=== PATIENT | female | born 2000 | race Caucasian/White ===

== ENCOUNTER 2025-05-08 14:39 | Emergency (ER) | payer OTHER, SELFPAY ==
--- OUTSIDE RECORDS SUMMARY | 2002-03-21 | XMS_ITS | Encounter Summary ---
Author Organization [facility] Address [address] [place] [address] Care Team Providers Care Necktie Centralizing Machine Operator Name Role Phone Unavailable Primary Care Provider Unavailabl e Encounter Details Date Type Department Care Team (Late st Contact Info) Description 03/21/2002 Hospital Encounter [facility] Department of Radiology [address] [place] [phone] Social History Tobacco Use Types Packs/Day Years Used Date Smoking Tobacco: Never Smokeless Tobacco: Never Alcohol Use Standard Drinks/Week Comments No 0 (1 standard drink = 0.6 oz pur e alcohol) Intimate Partner Violence Answer Date R ecorded If you are in a relationship , do you feel safe in that relationship? Yes 04/21/2025 If you are in a relationship , do you feel safe in that relationship? Not currently in a relationship 04/21/2025 Financial Resource Strain Answer Date R ecorded Financial benefits problems Not on file 05/2022 Trouble paying for things you need Not on file 09/12/2022 Trouble paying for things you need (Other) Not o n file 09/12/2022 Depression Answer Date Recorded PHQ-2 Score 6 07/31/2024 Safety and Environment Answer Date Rogelio rded Do you have any concerns of physical abuse, sexual abuse, or neglect of your child? No 11/12/2024 Is an adult hurting you or your family? No 11/12/2024 Has someone ever touched you in a sexual way that was not ok with you? No 11/12/2024 Is someone hurting your or your family? No 11/12/2024 Historical abuse worry Not on file If you have firearms in the home, are they all in locked storage AND unloaded? Not on file 11/12/2024 Comments No Sex and Gender Information Value Date Recorded Sex Assigned at Female 11/24/2020 8:15 AM EDT Legal Sex Female 5:13 AM EST Gender Identity Transgender Male 11/24/2020 8:15 AM EDT Sexual Orientation Not on file documented as of this encounter Plan of Treatment Upcoming Encounters Date Type Department Care Team (Late st Contact Info) Description 06/23/2025 10:45 AM EST Appointment [facility] Division of Psychiatry [address] [place] [phone] Frederic Lam MD Psychiatry/Psycho [facility] - [address] [place] [address] [place] [address] Discharge Disposition: Home or Self Care documented as of this encounter Goals Goal Patient Goal Type Associated Problems Recent Progress Patient-Stated? Author How and when to contact the care team Access Planning No Maritza Thomas RN Note: Patient and Family will verbalize understanding of who to call for medical questions and concerns. Status: progressing Interventions: Reinforced to call triage or oncology oncall for illness. Reinforced to call medicare compliance auditor for non emergent issues. Encouraged family to ask questions re: care. General Care Management Care Management No Maritza Thomas RN Note: Patient and Family will verbalize understanding of diagnosis, treatment plan, medications, safety measures and appointment adherence. Status: Progressing Interventions: Reinforcement of treatment plan, medications, calendar of appointments given to family. Collaborate with patient and family to develop a patient-stated goal General Yes Maritza Thomas, RN Note: Status: Progressing Interventions: Meet with the family to formalize a goal for DJ. documented as of this encounter Visit Diagnoses Not on filedocumented in this encounter Additional Health Concerns Infection Onset Date Last Indicated Resolved Time Enteric 10/05/2015 10/05/2015 11/05/2015 4:49 PM EDT C-Diff 10/05/2015 10/05/2015 11/05/2015 4:49 PM EDT documented as of this encounter
--- OUTSIDE RECORDS SUMMARY | 2002-04-09 | XMS_ITS | Encounter Summary ---
Author Organization [facility] Address [address] [place] [address] Care Team Providers Care Wire Mill Rover Name Role Phone Unavailable Primary Care Provider Unavailabl e Encounter Details Date Type Department Care Team (Late st Contact Info) Description 04/09/2002 Hospital Encounter [facility] Division of Diabetes and Endocrinology [address] [place] [phone] Social History Tobacco Use Types Packs/Day [...] Info) Description 06/23/2025 10:45 AM EST Appointment [facility] Division of Psychiatry [address] [place] [phone] Frederic Lam MD Psychiatry/Psycho [address] [place] [address] [place] [address] Discharge Disposition: Home or Self Care documented [...] oncology oncall for illness. Reinforced to call healthcare recruiter for non emergent issues. Encouraged family to [...]
--- OUTSIDE RECORDS SUMMARY | 2003-01-28 23:00 | XMS_ITS | Encounter Summary ---
Author Organization [facility] Address [address] [place] [address] Care Team Providers Care Accounting Supervisor Name Role Phone Unavailable Primary Care Provider Unavailabl e Encounter Details Date Type Department Care Team (Late st Contact Info) Description 01/29/2003 Hospital Encounter [facility] Division of Endocrinology [address] [place] [address] Social History Tobacco Use Types Packs/Day Years [...] on file documented as of this encounter Progress Notes * Edt, Audit [place] - 07/14/2010 4:11 PM EST documented in this encounter Plan of Treatment Upcoming Encounters Date Type Department Care Team (Late st Contact Info) Description 06/23/2025 10:45 AM EST Appointment [facility] Division of Psychiatry [address] [place] [phone] Frederic Lam MD Psychiatry/Psycho [address], [address] [place] [phone] Discharge Disposition: Home or Self Care documented [...] oncology oncall for illness. Reinforced to call career information specialist for non emergent issues. Encouraged family to ask questions re: care. General Care Management Care Management No Maritza Thomas, IRMA Note: Patient and Family will verbalize understanding [...]
--- OUTSIDE RECORDS SUMMARY | 2003-05-21 | XMS_ITS | Encounter Summary ---
Author Organization [facility] Address [address] [place] [address] Care Team Providers Care Servicenow Administrator Name Role Phone Unavailable Primary Care Provider Unavailabl e Encounter Details Date Type Department Care Team (Late st Contact Info) Description 05/21/2003 Hospital Encounter [facility] Division of Endocrinology [address] [place] [address] Social History Tobacco Use Types [...] Info) Description 06/23/2025 10:45 AM EST Appointment [facility] Division of Psychiatry [address] [place] [phone] Frederic Lam MD Psychiatry/Psycho [facility] - [address] [place] [address] [place] [address] Discharge Disposition: Home or Self Care documented [...] oncology oncall for illness. Reinforced to call pediatric critical care nurse for non emergent issues. Encouraged family to [...]
--- OUTSIDE RECORDS SUMMARY | 2003-11-25 23:00 | XMS_ITS | Encounter Summary ---
Author Organization [facility] Address [address] [place] [address] Care Team Providers Care Hospital Chaplain Name Role Phone Unavailable Primary Care Provider Unavailabl e Encounter Details Date Type Department Care Team (Late st Contact Info) Description 11/26/[address] [facility] Division of Endocrinology [address] [place] [address] Social History Tobacco Use Types [...] Info) Description 06/23/2025 10:45 AM EST Appointment [facility] Division of Psychiatry [address] [place] [phone] Frederic Lam MD Psychiatry/Psycho [facility] - [address] [place] [address] [place] [address] Discharge Disposition: Home or Self Care documented [...] oncology oncall for illness. Reinforced to call adult caregiver for non emergent issues. Encouraged family to [...]
--- OUTSIDE RECORDS SUMMARY | 2004-06-02 | XMS_ITS | Encounter Summary ---
Author Organization [facility] Address [address] [place] [address] Care Team Providers Care Cracking And Fanning Machine Operator Name Role Phone Unavailable Primary Care Provider Unavailabl e Encounter Details Date Type Department Care Team (Late st Contact Info) Description 06/02/[address] [facility] Division of Endocrinology [address] [place] [address] Social History Tobacco Use Types [...] Info) Description 06/23/2025 10:45 AM EST Appointment [facility] Division of Psychiatry [address] [place] [phone] Frederic Lam MD Psychiatry/Psycho [facility] - [address] [place] [address] [place] [address] Discharge Disposition: Home or Self Care documented [...] oncology oncall for illness. Reinforced to call floor care specialist for non emergent issues. Encouraged family [...]
--- OUTSIDE RECORDS SUMMARY | 2004-11-30 23:00 | XMS_ITS | Encounter Summary ---
Author Organization [facility] Address [address] [place] [address] Care Team Providers Care Macerator Operator Name Role Phone Unavailable Primary Care Provider Unavailabl e Encounter Details Date Type Department Care Team (Late st Contact Info) Description 12/01/2004 Hospital Encounter [facility] Division of Endocrinology [address] [place] [address] Social History Tobacco Use Types [...] Info) Description 06/23/2025 10:45 AM EST Appointment [facility] Division of Psychiatry [address] [place] [phone] Frederic Lam MD Psychiatry/Psycho [facility] - [address] [place] [address] [place] [address] Discharge Disposition: Home or Self Care documented [...] oncology oncall for illness. Reinforced to call home care associate for non emergent issues. Encouraged family to [...]
--- OUTSIDE RECORDS SUMMARY | 2005-06-01 | XMS_ITS | Encounter Summary ---
Author Organization [facility] Address [address] [place] [address] Care Team Providers Care District Manager Postal Service Name Role Phone Unavailable Primary Care Provider Unavailabl e Encounter Details Date Type Department Care Team (Late st Contact Info) Description 06/01/2005 Hospital Encounter [facility] Division of Endocrinology [address] [place] [address] Social History Tobacco Use Types [...] Info) Description 06/23/2025 10:45 AM EST Appointment [facility] Division of Psychiatry [address] [place] [phone] Frederic Lam MD Psychiatry/Psycho [facility] - [address] [place] [address] [place] [address] Discharge Disposition: Home or Self Care documented [...] oncology oncall for illness. Reinforced to call foster care worker for non emergent issues. Encouraged family to [...]
--- OUTSIDE RECORDS SUMMARY | 2005-11-29 23:00 | XMS_ITS | Encounter Summary ---
Author Organization [facility] Address [address] [place] [address] Care Team Providers Care Consumer Attorney Name Role Phone Unavailable Primary Care Provider Unavailabl e Encounter Details Date Type Department Care Team (Late st Contact Info) Description 11/30/2005 Hospital Encounter [facility] Division of Endocrinology [address] [place] [address] Social History Tobacco Use Types [...] Info) Description 06/23/2025 10:45 AM EST Appointment [facility] Division of Psychiatry [address] [place] [phone] Frederic Lam MD Psychiatry/Psycho [facility] - [address] [place] [address] [place] [address] Discharge Disposition: Home or Self Care documented [...] oncology oncall for illness. Reinforced to call critical care physician assistant for non emergent issues. Encouraged family to [...]
--- OUTSIDE RECORDS SUMMARY | 2006-05-31 | XMS_ITS | Encounter Summary ---
Author Organization [facility] Address [address] [place] [address] Care Team Providers Care Estate Planning Paralegal Name Role Phone Unavailable Primary Care Provider Unavailabl e Encounter Details Date Type Department Care Team (Late st Contact Info) Description 05/31/2006 Hospital Encounter [facility] Division of Endocrinology [address] [place] [address] Social History Tobacco Use Types [...] Info) Description 06/23/2025 10:45 AM EST Appointment [facility] Division of Psychiatry [address] [place] [phone] Frederic Lam MD Psychiatry/Psycho [facility] - [address] [place] [address] [place] [address] Discharge Disposition: Home or Self Care documented [...] oncology oncall for illness. Reinforced to call palliative care specialist for non emergent issues. Encouraged [...]
--- OUTSIDE RECORDS SUMMARY | 2006-10-13 23:00 | XMS_ITS | Encounter Summary ---
Author Organization [facility] Address [address] [place] [address] Care Team Providers Care Referral Specialist Name Role Phone Unavailable Primary Care Provider Unavailabl e Encounter Details Date Type Department Care Team (Late st Contact Info) Description 10/14/2006 Hospital Encounter [facility] Division of Orthopaedics [address] [place] [phone] Social History Tobacco Use Types Packs/Day [...] 06/23/2025 10:45 AM EST Appointment [facility] Division of Psychiatry [address] [place] [phone] Frederic Lam MD Psychiatry/Psycho [facility] - [address] [place] [address] [place] [address] Discharge Disposition: Home or Self Care documented as of this encounter Goals Goal Patient Goal Type Associated Problems Recent Progress Patient-Stated? Author How and when to contact the care team Access Planning Maritza Baker RN Note: Patient and Family will verbalize understanding of who to call for medical questions and concerns. Status: progressing Interventions: Reinforced to call triage or oncology oncall for illness. Reinforced to call pet caregiver for non emergent issues. Encouraged family [...] a patient-stated goal General Yes Maritza Thomas, IRMA Note: Status: Progressing Interventions: Meet with the family to formalize a goal for DJ. documented as of this encounter Visit Diagnoses Not on filedocumented in this encounter Additional Health Concerns Infection Onset Date Last Indicated Resolved Time Enteric 10/05/2015 10/05/2015 11/05/2015 4:49 PM EDT C-Diff 10/05/2015 10/05/2015 11/05/2015 4:49 PM EDT documented as of this encounter
--- OUTSIDE RECORDS SUMMARY | 2006-11-06 23:00 | XMS_ITS | Encounter Summary ---
Author Organization [facility] Address [address] [place] [address] Care Team Providers Care Tractor Operator Laser Leveling Name Role Phone Unavailable Primary Care Provider Unavailabl e Encounter Details Date Type Department Care Team (Late st Contact Info) Description 11/07/2006 Hospital Encounter [facility] Division of Orthopaedics [address] [place] [phone] Social History Tobacco Use Types Packs/Day Years [...] Info) Description 06/23/2025 10:45 AM EST Appointment [facility] Division of Psychiatry [address] [place] [phone] Frederic Lam MD Psychiatry/Psycho [facility] - [address] [place] [address] [place] [address] Discharge Disposition: Home or Self Care documented [...] oncology oncall for illness. Reinforced to call careers adviser for non emergent issues. Encouraged family to [...] for DJ. documented as of this encounter Procedures Procedure Name Priority Date/Time Associated Diagnosis Comments RAD SHOULDER 2V+ Routine 11/07/2006 9:47 AM EDT documented in this encounter Results * RAD SHOULDER (2 VIEW+) (11/07/2006 9:47 AM EDT) Anatomical Region Laterality Modality RAD UPPER EXTREMITIES Computed R adiography 11/07/2006 9:33 AM EDT Narrative 11/07/2006 9:47 AM EDT Final Report Clinical history followup fracture healing. Impression considerable callus at healing fracture of proximal humerus Interpreted By: CINDY BANUELOS M.D. Verified By: CINDY BANUELOS M.D. on 11/07/2006 09:58 via Electronic Signature The attending radiologist has reviewed the images and agrees with this report. us [place] Do, MD DIAGNOSTIC IMAGING ORDERABLES Fi nal Result documented in this encounter Visit Diagnoses Not on filedocumented in this encounter Additional Health Concerns Infection Onset Date Last Indicated Resolved Time Enteric 10/05/2015 10/05/2015 11/05/2015 4:49 PM EDT C-Diff 10/05/2015 10/05/2015 11/05/2015 4:49 PM EDT documented as of this encounter
--- OUTSIDE RECORDS SUMMARY | 2025-04-21 10:15 | XMS_ITS | Encounter Summary ---
Author Organization [facility] Address [address] [place] [address] Care Team Providers Care Civilian Technician Name Role Phone Napoleon Courtney MD Primary Care Provider [phone] Encounter Details Date Type Department Care Team (Latest Contact Info) Description 04/21/2025 10:15 AM EST Specimen Collection [facility] Test Referral Center [address] [place] [address] [phone] Clinical Labs, [facility] Anxiety disorder, unspecified type; Hypopituitarism involving multiple pituitary deficiencies Discharge Disposition: Home or Self Care Social History Tobacco Use Types Packs/Day Years [...] Info) Description 06/23/2025 10:45 AM EST Appointment [facility] Division of Psychiatry [address] [place] [phone] Frederic Lam MD Psychiatry/Psycho [address] [place] [address] [place] [address] Discharge Disposition: Home or Self Care documented [...] oncology oncall for illness. Reinforced to call childcare worker for non emergent issues. Encouraged family [...] Procedure Name Priority Date/Time Associated Diagnosis Comments ANTI-MULLERIAN HORMONE Routine 04/21/2025 10:20 AM EST Hypopituitarism involving multiple pituitary deficiencies TSH WITH REFLEX TO T4 FREE, RAPID Routine 04/21/2025 10:20 AM EST Anxiety disorder, unspecified type T4 FREE, RAPID Routine 04/21/2025 10:20 AM EST Anxiety disorder, unspecified type HEPATIC PROFILE (NO GGT) Routine 04/21/2025 10:20 AM EST Anxiety disorder, unspecified type LIPID PROFILE W/ HDL Routine 04/21/2025 10:20 AM EST Anxiety disorder, unspecified type LH Routine 04/21/2025 10:20 AM EST Hypopituitarism involving multiple pituitary deficiencies GLYCOSYLATED HGB (HGB A1C) Routine 04/21/2025 10:20 AM EST Anxiety disorder, unspecified type FSH Routine 04/21/2025 10:20 AM EST Hypopituitarism involving multiple pituitary deficiencies ESTRADIOL US Routine 04/21/2025 10:20 AM EST Hypopituitarism involving multiple pituitary deficiencies documented in this encounter Results * T4 Free, Rapid (04/21/2025 10:20 AM EST) Thyroxine Free 1.50 0.90 - 2.30 ng/dL 04/21/2025 11:18 AM EST [facility] Blood Venipuncture / Unknown 04/21/2025 10:20 AM EST 04/21/2025 10:21 AM EST us Frederic Lam MD CHEMISTRY ORDERABLES Fin al Result Performing Organization Address City/State/[facility] Co de Phone Number [facility] [address] [facility] Room [address] [place] [address] * Anti-Mullerian Hormone (04/21/2025 10:20 AM EST) ANTI-MULLERIAN HORMONE 5.982 0.401 - 16.015 ng/mL 04/24/2025 11:07 AM EST [facility] Comment: INTERPRETIVE INFORMATION: Anti-Mullerian Hormone FEMALE: 6 months - 14 years: 0.256 - 6.345 ng/mL 15-17 years: 0.861 - 10.451 ng/mL 18-29 years: 0.401 - 16.015 ng/mL 30-39 years: 0.176 - 11.705 ng/mL 40-45 years: 6.282 ng/mL or less 46-50 years: 0.064 ng/mL or less Post-menopausal: 0.003 ng/mL or less MALE: 6-11 months: 56.677 - 495.299 ng/mL 1-6 years: 33.442 - 342.450 ng/mL 7-9 years: 20.245 - 189.781 ng/mL 10-12 years: 2.903 - 178.243 ng/mL 13 years and older: 2.079 - 30.656 ng/mL This test was developed and its performance characteristics determined by [employer]. It has not been cleared or approved by the US Food and Drug Administration. This test was performed in a CLIA certified laboratory and is intended for clinical purposes. Performed By: [employer] [address] [place] [address] Clear Coat Sprayer: Georgi Hannah MD, PhD CLIA Number: [id number] Blood Venipuncture / Unknown 04/21/2025 10:20 AM EST 04/21/2025 10:21 AM EST us Georgi Blum MD CHEMISTRY ORDERABLE S Final Result Performing Organization Address City/State/[facility] Co de Phone Number [address] [address] * Estradiol Us (04/21/2025 10:20 AM EST) ESTRADIOL BY TMS 15.8 pg/mL 04/25/20 4:45 AM EST [facility] Comment: REFERENCE INTERVAL: Estradiol by [employer] Pre-menopausal: Early follicular 30.0-100.0 pg/mL Pre-menopausal: Late follicular 100.0-400.0 pg/mL Pre-menopausal: Luteal 50.0-150.0 pg/mL Post-menopausal 2.0-21.0 pg/mL REFERENCE INTERVAL: Estradiol by [employer] For a complete set of all established reference intervals, refer to [employer]/Tests/Pub/[id number]. This test was developed and its performance characteristics determined by [employer]. It has not been cleared or approved by the US Food and Drug Administration. This test was performed in a CLIA certified laboratory and is intended for clinical purposes. Performed By: [employer] [address] [place], [place] [id number] Clear Coat Sprayer: Georgi Hannah MD, PhD CLIA Number: [id number] Blood Venipuncture / Unknown 04/21/2025 10:20 AM EST 04/21/2025 10:21 AM EST us Georgi Blum MD CHEMISTRY ORDERABLE S Final Result Performing Organization Address [facility] de Phone Number [address] [address] * FSH (04/21/2025 10:20 AM EST) FOLLICLE STIMULATING HORMONE 6.9 mIU/mL 04/22/2025 12:36 PM EST [facility] Comment: Reference Ranges: Infants Male Female 4 weeks - 1 year < 2.5 - 7.6 < 2.5 - 26.3 Prepubertal children Male Female 2 - 8 years < 2.5 - 5.6 < 2.5 - 7.8 Pubertal children Male Female Elroy stage 1 < 2.5 - 5.6 < 2.5 - 7.8 Elroy stage 2 3.3 - 5.9 < 2.5 - 20.0 Elroy stage 3 2.5 - 10.7 2.8 - 23.7 Elroy stage 4 3.7 - 17.0 2.8 - 21.7 Elroy stage 5 4.8 - 20.4 < 2.5 - 17.0 Adults Male (20 - 50 years) 3.7 - 17.0 Female (20 - 50 years) follicular and luteal 3.3 - 20.7 mid-cycle 11.1 - 64.8 post-menopausal 55.5 - 222.0 Blood Venipuncture / Unknown 04/21/2025 10:20 AM EST 04/21/2025 10:21 AM EST Georgi Blum MD CHEMISTRY ORDERABLE S Final Result Performing Organization Address City/[facility] de Phone Number [facility] [address] [place] [address] * LH (04/21/2025 10:20 AM EST) LUTEINIZING HORMONE 7.3 mIU/mL 04/22/2025 12:36 PM EST [facility] Comment: Reference Ranges: Infants 2 weeks - 1 year < 3.0 - 10.5 Prepubertal children 2 - 8 years < 3.0 Pubertal children Male Female Elroy stage 1 < 3.0 < 3.0 Elroy stage 2 <3.0 - 7.4 < 3.0 - 7.1 Elroy stage 3 <3.0 - 7.5 <3.0 - 18.0 Elroy stage 4-5 <3.0 - 10.5 <3.0 - 17.6 Adults Male (20 - 50 years) <3.0 - 13.5 Female (20 - 50 years) follicular and luteal: 3.0 - 13.5 mid-cycle: 27.0 - 73.5 post-menopausal: 3.0 - 16.5 Blood Venipuncture / Unknown 04/21/2025 10:20 AM EST 04/21/2025 10:21 AM EST Georgi Blum MD CHEMISTRY ORDERABLE S Final Result Performing Organization Address City/[facility] Co de Phone Number [facility] [address] [place] [address] * Hemoglobin A1C (04/21/2025 10:20 AM EST) Hb A1c 5.4 <=6.3 % 04/22/2025 10: 38 AM EST [facility]I EDL Blood Venipuncture / Unknown 04/21/2025 10:20 AM EST 04/21/2025 10:21 AM EST Frederic Lam MD CHEMISTRY ORDERABLES Fin al Result Performing Organization Address [facility] de Phone Number [facility] [address] [place] [address] * (ABNORMAL) TSH with Reflex to T4 Free, Rapid (04/21/2025 10:20 AM EST) Pathologist [facility] Tsh With Reflex To T4 Free Rapid <0.010(L) 0.360 - 3.740 mcIU/mL 04/21/2025 10:58 AM EST [facility] Blood Venipuncture / Unknown 04/21/2025 10:20 AM EST 04/21/2025 10:21 AM EST Frederic Lam MD CHEMISTRY ORDERABLES Fin al Result Performing Organization Address City/[facility] Co de Phone Number [facility] [address] [facility] Room [address] [place] [address] * Lipid Profile W/ HDL (04/21/2025 10:20 AM EST) Hdl Cholesterol 54 >=40 mg/dL 10:58 AM EST [facility] Cholesterol Total 162 <=199 mg/dL 2024 10:58 AM EST [facility] Triglyceride 113 Female 2-199; Male 2-199 mg/dL 04/21/2025 10:58 AM EST [facility] Ldl (Calculated) 86 mg/dl 04/21/20 10:58 AM EST [facility] Blood Venipuncture / Unknown 04/21/2025 10:20 AM EST 04/21/2025 10:21 AM EST Narrative [facility] - 04/21/2025 10:58 AM EST Triglycerides: Age Range Acceptable Borderline High High Very High Child(2-9Yrs) <75 mg/dL 75-99 mg/dL >=100 mg/dL Adolescent 10-18 Yrs <90 mg/dL 90-129 mg/dL >=130 mg/dL Adult >18 Yrs <150 mg/dL 150-199 mg/dL 200-499 mg/dL >=500mg/dL Cholesterol: Age Range Desirable Borderline High High Risk Child/Adol. <170 mg/dL 170-199 mg/dL >=200 mg/dL Adult <200 mg/dL 200-239 mg/dL >=240 mg/dL HDL: Age Range Low Borderline Low Acceptable Child/Adol. <40 mg/dL 40-45 mg/dL >45 mg/dL Adult <40 mg/dL 40-59 mg/dL >59 mg/dL LDL Calculated: Age Range Acceptable Borderline High High Child/Adol. <110 mg/dL 110-129 mg/dL >=130 mg/dL Adult <100 mg/dL 100-159 mg/dL >=160mg/dL us Frederic Lam MD CHEMISTRY ORDERABLES Fin al Result [facility] [address] [facility] Room [address] [place] [id number] * Hepatic Profile (no GGT) (04/21/2025 10:20 AM EST) Bilirubin Total 0.2 0.1 - 1.0 mg/dL 04/21/2025 10:58 AM EST [facility] Bilirubin Direct 0.1 <=0.2 mg/dL 04/21/2025 10:58 AM EST [facility] Albumin 4.1 3.4 - 5.0 gm/dL 04/21/2025 10:58 AM EST [facility] Globulin 2.7 gm/dl 04/21/2025 10:58 AM EST [facility] Albumin/Globulin Ratio 2 1 - 2 04/21/2025 10:58 AM EST [facility] Aspartate Aminotransferase 19 Female and Male: <=33 unit/L 04/21/2025 10:58 AM EST [facility] Alanine Aminotransferase 15 9 - 40 unit/L 04/21/2025 10:58 AM EST [facility] Alkaline Phosphatase 70 Female: 46-116; Male: 46-116 unit/L 04/21/2025 10:58 AM EST [facility] TOTAL PROTEIN LEVEL 6.8 gm/dL 04/21 10:58 AM EST [facility] Blood Venipuncture / Unknown 04/21/2025 10:20 AM EST 04/21/2025 10:21 AM EST us Frederic Lam MD CHEMISTRY ORDERABLES Fin al Result [facility] [facility] Room [address] [place] [phone] documented in this encounter Visit Diagnoses Diagnosis Anxiety disorder, unspecified type 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 [address] [place] [address] PCP - General 07/11/18 documented as of this encounter
--- OUTSIDE RECORDS SUMMARY | 2025-04-21 10:45 | XMS_ITS | Encounter Summary ---
Author Organization [facility] Address [address] [place] [address] Care Team Providers Care Sales And Merchandising Associate Name Role Phone Napoleon Courtney MD Primary Care Provider [phone] Reason for Visit * Reason Comments Medication Management Encounter Details Date Type Department Care Team (Latest Contact Info) Description 04/21/2025 10:45 AM EST Office Visit [facility] Division of Psychiatry [address] [place] [phone] Frederic Lam MD Psychiatry/Psych ology - [address], [address] [place] [id number] Attention deficit hyperactivity disorder, inattentive type (Primary Dx) Discharge Disposition: Home or Self Care Social [...] on file documented as of this encounter Last Filed Vital Signs Vital Sign Reading Time Taken Comments Blood Pressure 126/80 04/21/2025 10:44 AM EST Pulse 86 04/21/2025 10:44 AM EST Temperature 36.7 C (98.1 F) 04/21/2025 10:44 AM EST Respiratory Rate - - Oxygen Saturation - - Inhaled Oxygen Concentration - - Weight 50.9 kg (112 lb 3.4 oz) 04/21/2025 10:44 AM EST Height 153.5 cm (5' 0.43 ) 04/21/2025 10:[address] Body Mass Index 21.6 04/21/2025 10:44 AM EST documented in this encounter Progress Notes * Connor Gracia, Jewel Sorter - 04/21/2025 10:45 AM EST Has patient been seen by PCP in last 12 months? Yes (reported by parent/guardian) New Patients Only: Do you consent to your provider sending a letter to your PCP regarding today's consult? NA Patient reports pain: No If pain reported, indicate location here: Developmentally Age Appropriate: Yes Falls Risk:No Handout Given: No Nutrition Concerns: No Cultural Spiritual Concerns: No * Nasim Andino RN - 04/21/2025 10:45 AM EST S: Pt with positive SI screen due to reporting attempt in Jun 2024. B: Per chart review, depression, panic attacks, Anxiety A: Pt's risk level is not emergent. Denies current SI R: Recommended interventions: review medication plan. Provider informed. * Frederic Lam MD - 04/21/2025 10:45 AM EST On 04/21/2025 I met face to face with Adrianna Whit Leavittgilma ARNULFO , a 24 y.o. non- binary individual forpharmacological management and monitoring of depression and anxiety. History was obtained from the patient. History of Present Illness Associated symptoms: feelings of worthlessness or inferiority, self blame for problems/guilt, feeling lonely, unwanted, or unloved and feelings of sadness/hopelessness Severity: Since the last visit, symptoms have been mild Context: Symptoms have been observed only at home Modifying factors/Medication treatment: ARNULFO is currently taking Concerta and Methylphenidate Abilify lorazepam There are no significant side effects reported. Adherence concerns (0-4): 3 (Severe--major difficulties with compliance. Often does not take. Therapeutic dosage not maintained). ARNULFO is a 24 y.o. Transgender/ non-binary individual with whom I met for a follow- up. Preferred pronouns are them/ them. They went to family counseling at the [facility], Beti Wharton MDIV, EXPERIMENTAL MACHINING LAB MANAGER. This lasted for a few sessions, but their dad was upset by one of the sessions and now refuses to return. ARNULFO notes that they have had their normal seasonal slide, but still feel safe. 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 They also have a friend named Dani, and they hang out weekly. ARNULFO has been vomiting more recently. They had their labs drawn today, andthose were normal. Past Family and Social History Past medical history includes see below. Social history: ARNULFO is currently in their home. Current stressors in the family include: difficulties taking time off work to care for the patient Review of Systems The following ROS was reviewed: Constitutional: negative Skin: negative Exam Blood pressure 126/80, pulse 86, temperature 36.7 ??C (98.1 ??F), height 153.5 cm, weight 50.9 kg. General Appearance: well-developed, well nourished Musculoskeletal exam: decreased muscle strength Mental Status Exam: Speech: normal rate and tone, spontaneous Thought Processes: appropriate for age Description of associations: intact Abnormal/Psychotic thoughts: no evidence of hallucinations or delusions Judgment and Insight: appropriate for age Orientation: oriented x 3 Recent/remote memory: good Attention/concentration: good Use of Language: appropriate for age Fund of knowledge: good Mood and affect: mood was euthymic, affect was appropriate Suicidality: ARNULFO denies suicidality currently There was no homicidal/violent ideation. Medical Decision Making Diagnosis [place] I: Depressive disorder, unspecified, r/o bipolar disorder, Anxiety disorder, unspecified, ADHDinattentive subtype, DID [place] II: deferred [place] III: osteoblastic osteosarcoma, s/p chemotherapy [place] IV: educational issues, medical illness and treatment [place] V: 66 Problem/condition Overall the patient's status is improving. Significant comorbidities: see above Data Reviewed Referral letter/letters Office notes Historical medical records Treatment Plan Continue current medication regimen Abilify 5 mg po daily Concerta 36 mg po daily Ritalin 10 mg po daily Ativan 1 mg po bid prn anxiety Premerin daily (per ob/ drawing in machine tender) RTC 1-2 months Genesight testing previously completed. documented in this encounter Plan of Treatment Upcoming Encounters Date Type Department Care Team (Late st Contact Info) Description 06/23/2025 10:45 AM EST Appointment [facility] Division of Psychiatry [address] [place], [place] [phone] Frederic Lam MD Psychiatry/Psycho logy - [place] [address] [place] [address] [place] [address] Discharge Disposition: Home or Self Care documented [...] oncology oncall for illness. Reinforced to call care management coordinator for non emergent issues. Encouraged family to [...] develop a patient-stated goal General Yes Maritza Thomas RN Note: Status: Progressing Interventions: Meet with the family to formalize a goal for DJ. documented as of this encounter Visit Diagnoses Diagnosis Attention deficit hyperactivity disorder, inattentive type- Primary Attention deficit disorder without mention of hyperactivity documented in this encounter Care Teams Sales And Merchandising Associate Relationship Specialty Start Date End Date Napoleon Courtney MD Jason Hoke, M.D. [address] [place] [address] PCP - General 07/11/18 documented as of this encounter
--- OUTSIDE RECORDS SUMMARY | 2025-04-21 14:04 | XMS_ITS | Encounter Summary ---
Author Organization [facility] Address [address] [place] [address] Care Team Providers Care Windows Server Administrator Name Role Phone Napoleon Courtney MD Primary Care Provider [phone] Encounter Details Date Type Department Care Team (Latest Contact Info) Description 04/21/2025 2:04 PM EST - 04/21/2025 11:59 PM [facility] Hospital Encounter [facility] Department of Pharmacy [address] [place] [phone] Emergency, Urgent Care [place], [place] Discharge Disposition: Home or Self Care Social [...] on file documented as of this encounter Medications at Time of Discharge acetaminophen (TYLENOL) 325 MG tablet Take 2 Tabs (650 mg total) by mouth every 6 hours as needed for mild pain. 60 Tab 7 ARIPiprazole (ABILIFY) 5 MG tablet Take 1 tablet by mouth 1 time a day. 30 tablet 8 03/27/2025 4:45 PM EST 5 cyclobenzaprine (FLEXERIL) 10 MG tablet Take 1 tablet by mouth every 8 hours as needed. 1 hydrocortisone (CORTEF) 5 MG tabletIndications:H ypopituitarism involving multiple pituitary deficiencies,ACTH deficiency TAKE 1.5 (7.5 MG) TABLETS BY MOUTH EVERY MORNING AND 1 (5 MG) TABLET EVERY EVENING. TAKE 3 TABLETS (15 MG) BY MOUTH NEEDED FOR MILD ILLNESS STRESS DOSING. 270 tablet 1 5 hydrocortisone (SOLU-CORTEF) 100 MG injectionIndication s:ACTH deficiency Inject 100 mg (2 mL) intramuscularly one time for severe illness when patient unable to take oral medication, and continuously vomiting. Please call provider office once given. 6 each 5 LORazepam (ATIVAN) 1 MG tabletIndications:A nxiety disorder, unspecified type Take 1 tablet by mouth 2 times a day as needed for anxiety. 180 tablet 2 03/08/2025 10:13 AM EDT 5 methylphenidate (CONCERTA) 36 MG extended release tabletIndications:A ttention deficit hyperactivity disorder, inattentive type Take 1 tablet by mouth every morning. 30 tablet 04/21/2025 5:03 PM EST 5 05/21/19 26 methylphenidate (CONCERTA) 36 MG extended release tabletIndications:A ttention deficit hyperactivity disorder, inattentive type Take 1 tablet by mouth every morning. 30 tablet 6 06/20/19 26 methylphenidate (RITALIN) 10 MG tabletIndications:A ttention deficit hyperactivity disorder, inattentive type Take 1 tablet by mouth 1 time a day as needed for ADHD. 30 tablet 03/08/2025 10:13 AM EDT 5 methylphenidate (RITALIN) 10 MG tabletIndications:A ttention deficit hyperactivity disorder, inattentive type Take 1 tablet by mouth 1 time a day as needed for attention. 30 tablet 5 SYNTHROID 112 MCG tabletIndications:C entral hypothyroidism TAKE 1 TABLET DAILY 90 tablet 1 5 syringe/needle (disp) (BD ECLIPSE SYRINGE) 23G X 1 3 ML miscellaneous To administer solu-cortef injections. 4 each 2 5 documented as of this encounter Plan of Treatment Upcoming Encounters Date Type Department Care Team (Late st Contact Info) Description 06/23/2025 10:45 AM EST Appointment [facility] Division of Psychiatry [address] [place] [phone] Frederic Lam MD Psychiatry/Psycho [facility] - [address] [place] [address] [place] [address] Discharge Disposition: Home or Self Care documented as of this encounter Goals Goal Patient Goal Type Associated Problems Recent Progress Patient-Stated? Author How and when to contact the care team Access Planning Maritza Baker, IRMA Note: Patient and Family will verbalize understanding of who to call for medical questions and concerns. Status: progressing Interventions: Reinforced to call triage or oncology oncall for illness. Reinforced to call zoo caretaker for non emergent issues. Encouraged family to ask questions re: care. General Care Management Care Management No Maritza Thomas, RN Note: Patient and Family will verbalize [...] Diagnoses Not on filedocumented in this encounter Care Teams Windows Server Administrator Relationship Specialty Start Date End Date Napoleon Courtney MD Jason Hoke, M.D. [address] [place] [address] PCP - General 07/11/18 documented as of this encounter
--- OUTSIDE RECORDS SUMMARY | 2025-05-01 07:25 | XMS_ITS | Encounter Summary ---
Author Organization [employer] [facility] Address [address] [place] [address] Phone Care Team Providers Care Fruit I Farmworker Name Role Phone Stefano Carlson Primary Care Provider + Reason for Referral * Radiology Services (Routine) - Pending Review Specialty Diagnoses / Procedures Referred By Contac t Referred To Contact Diagnoses Abdominal pain, RUQ (right upper quadrant) Procedures US ABDOMEN COMPLETE Stefano Carlson PA [address] [address] Phone: tel: fax: Referral ID Status Reason Start Date Expiration Date Visits Requested Visits Authorized [id number] Pending Review Specialty Services Required 04/24/2026 1 1 Reason for Visit * Auth/Cert (Routine) Specialty Diagnoses / Procedures Referred By Contac t Referred To Contact Referral ID Status Reason Start Date Expiration Date Visits Re quested Visits Authorized [id number] 1 1 Encounter Details Date Type Department Care Team (Latest Contact Info) Description 05/01/2025 7:25 AM EST - 05/01/2025 11:59 PM EST Hospital Encounter [facility] US [address] [place] [address] Stefano Carlson PA [address] [address] Right upper quadrant pain [R10.11] Discharge Disposition: Home or Self Care Social History Tobacco Use Types Packs/Day Years Used Date Smoking Tobacco: Never Assessed Food Insecurities Answer Date Recorded Worried about running out of food Not on file 06/05/2023 Food Bought Not on file 06/05/2023 Housing/Utilities Answer Date Recorded Worried about losing home Not on file 2023 Stayed outside house Not on file 06/05/2023 Unable to get utilities Not on file 06/05/19 Interpersonal Safety Answer Date Record ed Feel physically or emotionally unsafe where curr ently live Not on file 06/05/2023 Harm by anyone Not on file 06/05/2023 Emotionally Harmed Not on file 06/05/2023 Transportation Answer Date Recorded Worried about transportation Not on file Utilities Answer Date Recorded Worried about losing home Not on file 2023 Stayed outside house Not on file 09/18/2023 Unable to get utilities Not on file 09/18/19 Comments Unknown Sex and Gender Information Value Date Recorded Sex Assigned at Not on file Legal Sex Female 10:02 PM EDT Gender Identity Not on file Sexual Orientation Not on file documented as of this encounter Plan of Treatment Upcoming Encounters Date Type Department Care Team (Late st Contact Info) Description 05/21/2025 3:45 PM EST Office Visit [facility] [address] [place] [address] Lavon Cadet MD [address] [place] [address] [address]ima [place], [place] [id number] documented as of this encounter Procedures Procedure Name Priority Date/Time Associated Diagnosis Comments US ABDOMEN COMPLETE Routine 05/01/2025 7 :52 AM EST Abdominal pain, RUQ (right upper quadrant) documented in this encounter Results * US ABDOMEN COMPLETE (05/01/2025 7:52 AM EST) Anatomical Region Laterality Modality Abdomen Ultrasound 05/01/2025 8:07 AM EST Impressions 05/01/2025 8:14 AM EST Hepatic steatosis. Contracted gallbladder with cholelithiasis. Questionable small echogenic lesion of the upper pole right kidney. Differential includes a small angiomyolipoma, non-shadowing stone, or prominent renal pyramid. Narrative 05/01/2025 8:14 AM EST HISTORY: Right upper quadrant pain COMPARISON: None NOTE: If there are questions about the content of this report, please contact [facility] radiology by calling [phone] FINDINGS: PANCREAS: Grossly unremarkable, although partially obscured by bowel gas AORTA: Unremarkable IVC: Unremarkable LIVER: Increased heterogeneous echotexture suggesting steatosis. No obvious focal mass seen. Liver is of limited evaluation. GALLBLADDER: Contracted gallbladder with cholelithiasis. Wall measures approximately 2 mm thickness. No obvious pericholecystic fluid. BILE DUCTS: Unremarkable. No intra or extrahepatic biliary dilation COMMON DUCT MEASUREMENT: 5 mm RIGHT KIDNEY: Small echogenic focus at the upper pole kidney measuring approximately 0.8 cm. Differential would include a small angiolipoma versus nonobstructing stone or a prominent renal pyramid. No hydronephrosis. LEFT KIDNEY: Unremarkable SPLEEN: Unremarkable OTHER: Exam limited by presence of bowel gas. Procedure Note Jean Claude Roblero II, DO - 05/01/2025 HISTORY: Right upper quadrant pain COMPARISON: None NOTE: If there are questions about the content of this report, pleasecontact [facility] radiology by calling [phone] FINDINGS: PANCREAS: Grossly unremarkable, although partially obscured by bowelgas AORTA: Unremarkable IVC: Unremarkable LIVER: Increased heterogeneous echotexture suggesting steatosis. Noobvious focal mass seen. Liver is of limited evaluation. GALLBLADDER: Contracted gallbladder with cholelithiasis. Wall measuresapproximately 2 mm thickness. No obvious pericholecystic fluid. BILE DUCTS: Unremarkable. No intra or extrahepatic biliary dilation COMMON DUCT MEASUREMENT: 5 mm RIGHT KIDNEY: Small echogenic focus at the upper pole kidney measuringapproximately 0.8 cm. Differential would include a small angiolipomaversus nonobstructing stone or a prominent renal pyramid. Nohydronephrosis. LEFT KIDNEY: Unremarkable SPLEEN: Unremarkable OTHER: Exam limited by presence of bowel gas. IMPRESSION Hepatic steatosis. Contracted gallbladder with cholelithiasis. Questionable small echogenic lesion of the upper pole right kidney.Differential includes a small angiomyolipoma, non-shadowing stone, orprominent renal pyramid. us Stefano RICHARD Final Re sult documented in this encounter Visit Diagnoses Diagnosis Abdominal pain, RUQ (right upper quadrant) Abdominal pain, right upper quadrant documented in this encounter Care Teams Fruit I Farmworker Relationship Specialty Start Date End Date Stefano Carlson PA [address] [address] PCP - General Family Medicine 05/01/25 documented as of this encounter
[2025-05-08] VITALS (8 sets, daily range): BP systolic 108–132; BP diastolic 64–94; PULSE 57–75; RESP 15–18; TEMP 36.7–36.8; O2SAT 100; BMI 21.2
[2025-05-08 15:08] LABS: Bilirubin,Urine Negative (Negative); Color,Urine YELLOW (Yellow); Glucose,Urine (UA) Negative (Negative); Ketones,Urine Negative (Negative); Leukocyte Esterase,Urine 1+ (Negative); PH,Urine 7.0 (5.0-8.5); Protein,Urine NEGATIVE (Negative); Specific Gravity, Urine 1.020 (1.005-1.030); Urobilinogen,Urine 1.0 EU/dl (0.2)
[2025-05-08 15:10] LABS: Urine Pregnancy, HCG Qual. Negative (Negative)
[2025-05-08 15:13] LABS: Microscopic, Urine URINE MICROSCOPIC (MICROSCOPIC)
--- OUTSIDE RECORDS SUMMARY | 2025-05-08 15:25 | XMS_ITS | Encounter Summary ---
Author Organization [facility] Address [address] [place] [address] Phone Care Team Providers Care Professional Model Name Role Phone Stefano Carlson Primary Care Provider + Reason for Visit * Reason Comments Appointment Encounter Details Date Type Department Care Team (Late st Contact Info) Description 05/05/[address] [facility] [address] [facility] [address] [place] [address] Lavon Lambert MD [address] [place] [address] Social History Tobacco Use Types Packs/Day Years [...] on file documented as of this encounter Miscellaneous Notes * Telephone Encounter - May Adams - 05/05/2025 8:45 AM EST PT CALLED IN TO SCHEDULE TO SEE DR LAMBERT FOR Abdominal pain, RUQ (right upper quadrant). SCHEDULED FIRST AVAILABLE ON 05/21/2025. UNABLE TO SCHEDULE WITHIN A WEEK PER THE [facility] PLEASE ADVISE PT CAN BE REACHED AT [phone] (home) documented in this encounter Plan of Treatment Upcoming Encounters Date Type Department Care Team (Late st Contact Info) Description 05/21/2025 3:45 PM EST Office Visit [facility] [address] [facility] [place] [address] Lavon Lambert MD [address] [place] [address] documented as of this encounter Visit Diagnoses Not on filedocumented in this encounter Care Teams Professional Model Relationship Specialty Start Date End Date Stefano Carlson PA [address] [address] PCP - General Family Medicine 05/01/25 documented as of this encounter
--- OUTSIDE RECORDS SUMMARY | 2025-05-08 15:25 | XMS_ITS | Encounter Summary ---
Author Organization [facility] Address [address] [place] [address] Care Team Providers Care Hadoop Administrator Name Role Phone Napoleon Courtney MD Primary Care Provider [phone] Encounter Details Date Type Department Care Team (Late st Contact Info) Description 08/13/2015 Telephone [facility] Cancer and Blood Diseases [place] [address] [place] [phone] Yahaira Shaw MD [address] [facility] [address] [place] [address] Social History Tobacco Use Types Packs/Day Years Used Date Smoking Tobacco: Never Alcohol Use Standard Drinks/Week Comments No 0 (1 standard drink = 0.6 oz pur e alcohol) Comments Unknown Sex and Gender Information Value Date Recorded Sex Assigned at Female 11/24/2020 8:15 AM EDT Legal Sex Female 5:13 AM EST Gender Identity Transgender Male 11/24/2020 8:15 AM EDT Sexual Orientation Not on file documented as of this encounter Plan of Treatment Upcoming Encounters Date Type Department Care Team (Late st Contact Info) Description 06/23/2025 10:45 AM EST Appointment [facility] Division of Psychiatry [address] [place] [address] Frederic Lam MD Psychiatry/Psycho [facility] [address] [facility] [address] [place], [address] [place] [address] Discharge Disposition: Home or Self Care documented as of this encounter Visit Diagnoses Not on filedocumented in this encounter Additional Health Concerns Infection Onset Date Last Indicated Resolved Time Enteric 10/05/2015 10/05/2015 11/05/2015 4:49 PM EDT C-Diff 10/05/2015 10/05/2015 11/05/2015 4:49 PM EDT documented as of this encounter Care Teams Hadoop Administrator Relationship Specialty Start Date End Date Napoleon Courtney MD Jason Hoke, M.D. [address] [place] [address] PCP - General 07/11/18 documented as of this encounter
--- OUTSIDE RECORDS SUMMARY | 2025-05-08 15:25 | XMS_ITS | Encounter Summary ---
Author Organization [facility] Address [facility] [place] [address] Care Team Providers Care Floorwalker Name Role Phone Napoleon Courtney MD Primary Care Provider [phone] Encounter Details Date Type Department Care Team (Late st Contact Info) Description 03/07/2016 Telephone [facility] Department of Radiology [address] [place] [phone] Sonal Hartman, RT(R) Social History Tobacco Use Types Packs/Day Years [...] Info) Description 06/23/2025 10:[address] [facility] Division of Psychiatry [address] [place] [address] Frederic Lam MD Psychiatry/Psycho [place] [address] [place] [address] [place] [address] Discharge Disposition: Home or Self [...] for illness. Reinforced to call palliative care coordinator for non emergent issues. Encouraged family [...] on filedocumented in this encounter Care Teams Floorwalker Relationship Specialty Start Date End Date Napoleon Courtney MD Jason Hoke, M.D. [address] [place] [address] PCP - General 07/11/18 documented as of this encounter
--- OUTSIDE RECORDS SUMMARY | 2025-05-08 15:25 | XMS_ITS | Clinical Summary ---
Author Organization [facility] Address [address] [place] [address] Care Team Providers Care Usability Engineer Name Role Phone Stefano Carlson Primary Care Provider + Encounters Date Type Department Care Team Description 05/05/2025 Telephone [facility] [address] [place] [address] [address] [place] [phone] Lavon Cadet MD 05/01/2025 7:25 AM EST - 05/01/2025 11:59 PM [facility] Hospital Encounter [facility] US [address] [place] [address] Stefano Carlson PA Right upper quadrant pain [R10.11] Discharge Disposition: Home or Self Care 04/24/2025 Orders Only [facility] Central Scheduling [address] [place] [address] Stefano Carlson PA Abdominal pain, RUQ (right upper quadrant) (Primary Dx) from Last 3 Months Social History Tobacco Use Types Packs/Day Years Used Date Smoking Tobacco: Never Assessed Food Insecurities Answer Date Recorded Worried about running out of food Not on file 06/05/2023 Food Bought Not on file 06/05/2023 Housing/Utilities Answer Date Recorded Worried about losing home Not on file 2023 Stayed outside house Not on file 06/05/2023 Unable to get utilities Not on file 06/05/19 24 Interpersonal Safety Answer Date Record ed Feel [...] to get utilities Not on file 09/18/19 24 Comments Unknown Sex and Gender Information Value Date Recorded Sex Assigned at Not on file Legal Sex Female 10:02 PM EDT Gender Identity Not on file Sexual Orientation Not on file Plan of Treatment Upcoming Encounters Date Type Department Care Team (Late st Contact Info) Description 05/21/2025 3:45 PM EST Office Visit [facility] [address] [place] [address] Lavon Cadet MD [address] [place] [address] Health Maintenance Due Date Last Done Comments HPV (1 - 3-dose series) 2016 Meningococcal B (MenB) (1 of 2 - Standard) 2017 Pap Screening 2022 DTap,Tdap,and Td (7 - Td or Tdap) 12/11/2023 12/10/2013, 09/25/2006, 03/13/2003, Additional history exists Influenza Vaccine (#1) 2025 01/20/2016, 2015 RSV Vaccine (60+ or ) (1 - 1-dose 75+ series) 2076 Pneumococcal 0-49 Aged Out 11/28/2002, , 03/11/2002, Additional history exists No longer eligible based on patient's age to complete this topic Meningococcal conjugate valent 4 (MCV4) Completed 11/07/2018 RSV Immunization (<20 months) Aged Out No longer eligible based on patient's age to complete this topic Procedures Procedure Name Priority Date/Time Associated Diagnosis Comments US ABDOMEN COMPLETE Routine 05/01/2025 7 :52 AM EST Abdominal pain, RUQ (right upper quadrant) from Last 3 Months Results * US ABDOMEN COMPLETE (05/01/2025 7:52 [...] the content of this report, please contact [facility] radiology by calling [phone] FINDINGS: PANCREAS: Grossly unremarkable, although partially obscured [...] about the content of this report, pleasecontact [facility] radiology by calling [phone] FINDINGS: PANCREAS: Grossly unremarkable, although partially obscured [...] pyramid. us Stefano RICHARD Final Re sult from Last 3 Months Insurance [employer] on file [employer] OTHER Care Teams Usability Engineer Relationship Specialty Start Date End Date Stefano Carlson PA [address] [address] PCP - General Family Medicine 05/01/25
--- OUTSIDE RECORDS SUMMARY | 2025-05-08 15:25 | XMS_ITS | Encounter Summary ---
Author Organization [facility] Address [address] [place] [address] Phone Care Team Providers Care Trade Recruiter Name Role Phone Napoleon Cee CNP Primary Care Provider + [phone] Stefano Carlson Primary Care Provider + Reason for Referral * Radiology Services (Routine) - Pending Review Specialty Diagnoses / Procedures Referred By Contsamantha t Referred To Contact Diagnoses Abdominal pain, RUQ (right upper quadrant) Procedures US ABDOMEN COMPLETE Stefano Carlson PA [address] [address] Phone: tel: fax: Referral ID Status Reason Start Date Expiration Date Visits Requested Visits Authorized [id number] Pending Review Specialty Services Required 04/24/2026 1 1 Encounter Details Date Type Department Care Team (Late st Contact Info) Description 04/24/2025 Orders Only [facility] Central Scheduling [address] [place] [phone] Stefano Carlson PA [address] [address] Abdominal pain, RUQ (right upper quadrant) (Primary Dx) Social History Tobacco Use Types Packs/Day Years [...] Description 05/21/2025 3:45 PM EST Office Visit [facility] Surgical [facility] [address] [place] [address] [place] [address] Lavon Cadet MD [address] [place] [address] documented as of this encounter Results * US ABDOMEN COMPLETE [...] the content of this report, please contact [facility] radiology by calling [phone] FINDINGS: PANCREAS: Grossly unremarkable, although partially obscured [...] about the content of this report, pleasecontact [facility] radiology by calling [phone] FINDINGS: PANCREAS: Grossly unremarkable, although partially obscured [...] Diagnoses Diagnosis Abdominal pain, RUQ (right upper quadrant)- Primary Abdominal pain, right upper quadrant Abdominal pain, RUQ (right upper quadrant) Abdominal pain, right upper quadrant documented in this encounter Care Teams Trade Recruiter Relationship Specialty Start Date End Date Napoleon Cee CNP PCP - General 10/23/20 04/30/25 Stefano Carlson PA [address] [address] PCP - General Family Medicine 05/01/25 documented as of this encounter
--- OUTSIDE RECORDS SUMMARY | 2025-05-08 15:26 | XMS_ITS | Encounter Summary ---
Author Organization [facility] Address [facility] [place] [address] Care Team Providers Care Sales Contracts Analyst Name Role Phone Napoleon Courtney MD Primary Care Provider Reason for Visit * Reason Comments Medication Refill Encounter Details Date Type Department Care Team (Late st Contact Info) Description 01/12/2023 Refill [facility] Division of Diabetes and Endocrinology [address] [place] [phone] Georgi Blum MD Endocrinology [address] [place] [address] [place] [address] Medication Refill Social History Tobacco Use Types Packs/Day Years Used Date Smoking Tobacco: Never Smokeless Tobacco: Never Alcohol Use Standard Drinks/Week Comments No 0 (1 standard drink = 0.6 oz pur e alcohol) Intimate Partner Violence Answer Date R ecorded If you are in a relationship , do you feel safe in that relationship? Yes 08/01/2022 If you are in a relationship , do you feel safe in that relationship? Yes 08/01/2022 Financial Resource Strain Answer Date R ecorded Financial benefits problems Not on file 05/2022 Trouble paying for things you need Not on file 09/12/2022 Trouble paying for things you need (Other) Not o n file 09/12/2022 Safety and Environment Answer Date Rogelio rded Do you have any concerns of physical abuse, sexual abuse, or neglect of your child? No 08/01/2022 Is an adult hurting you or your family? No 08/01/2022 Has someone ever touched you in a sexual way that was not ok with you? No 08/01/2022 Is someone hurting your or your family? No 08/01/2022 Historical abuse worry Not on file If you have firearms in the home, are they all in locked storage AND unloaded? Not on file 08/01/2022 (RETIRED 02/2022) Guns In Home Not on file 0 08/01/2022 (RETIRED 02/2022) Guns Unloaded or Locked Away N ot on file 08/01/2022 Comments No Sex and Gender Information Value Date Recorded Sex Assigned at Female 11/24/2020 8:15 AM EDT Legal Sex Female 5:13 AM EST Gender Identity Transgender Male 11/24/2020 8:15 AM EDT Sexual Orientation Not on file documented as of this encounter Plan of Treatment Upcoming Encounters Date Type Department Care Team (Late st Contact Info) Description 06/23/2025 10:45 AM EST Appointment [facility] Division of Psychiatry [address] [place] [phone] Frederic Lam MD Psychiatry/Psycho [facility] [address] [place] [address] [place] [address] Discharge Disposition: Home or Self Care documented as of this encounter Goals Goal Patient Goal Type Associated Problems Recent Progress Patient-Stated? Author How and when to contact the care team Access Planning No Maritza Thomas, RN Note: Patient and Family will verbalize understanding of who to call for medical questions and concerns. Status: progressing Interventions: Reinforced to call triage or oncology oncall for illness. Reinforced to call home health care case manager for non emergent issues. Encouraged family to [...] as of this encounter Visit Diagnoses Diagnosis Central hypothyroidism Unspecified hypothyroidism documented in this encounter Care Teams Sales Contracts Analyst Relationship Specialty Start Date End Date Napoleon Courtney MD Jason Hoke, M.D. [address] [place] [address] PCP - General 07/11/18 documented as of this encounter
--- OUTSIDE RECORDS SUMMARY | 2025-05-08 15:26 | XMS_ITS ---
Author Organization [facility] Address [address] [place] [address] Care Team Providers Care Frog Farmer Name Role Phone Napoleon Courtney MD Primary Care Provider [phone] Active Problems Patient Care Coordination No te Formatting of this note migh t be different from the original. 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 Therapeutic protocols, plans and goals: Chemo Plan: As per [id number] Delays (Y/N) N Surgery: September 10 local control, 10/28 thoracotomy scheduled Radiation: Maintain Counts: PLT 20, HGB 8 Growth Factors:(Neulasta vs Neupogen) Neulasta Stress Dosing (Y/N): Y has endocrinopathies Nutrition (oral vs Enteral):ENteral Fertility Consult requested:Completed Fertility Significant studies and evaluations: Outpatient management: Labs: twice weekly Home Care:[facility] Type of Line:DL port PCP Prophylaxis: pentamidine Insurance/financial issues: Prior Authorizations: (Needed/Completed) Special considerations: Neuro Psych Consult: (Y/N) Psychosocial/Concerns: Means of Transportation : Means of Communication: Summary of unplanned admissions: Problem Noted Date Diagnosed Date Gender dysphoria in pediatric patient 03/08/2018 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 Pragmatic Language Weakness 09/16/2016 Depressive disorder 09/16/2016 Panic attacks 09/16/2016 Anxiety disorder 09/16/2016 Overview (09/16/2016): R/o PTSD Closed fracture of part of fibula 06/14/2016 Closed fracture of radius 06/14/2016 Closed fracture of right distal radius and ulna 06/14/2016 Osteopenia due to cancer therapy 06/14/2016 Abnormal laboratory test 04/26/2016 Neutropenia 12/29/2015 Decreased range of motion of right knee 12/28/19 16 Muscle weakness (generalized) 12/28/2015 Decreased mobility and endurance 12/28/2015 Transfusion history 11/07/2015 Overview (12/28/2015): Premed with tylenol and atarax (25 mg) for platelets and PRBCs. (11/04 possible febrile non-hemolytic reaction-Blood bank rec premed for PRBCs with tylenol and benadryl). Questionable reaction to benadryl with extreme jitteriness, emotional outbursts during admission early December. Tolerated products with premeds of tylenol and atarax. 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 Right 20/60 with corrective lens. No peripheral vision. Nocturnal enuresis 10/06/2009 Current Treatment and Therapy Plans No current plan information found. Past Treatment and Therapy Plans CBDI ROUTINE ORDERS Plan Name Start Date Discontinue Date Treatment Medications Discontinue Reason Plan Provider CBDI ROUTINE ORDERS 07/07/2015 11/04/2016 No medications scheduled. Other - ONCOLOGY TREATMENT Plan Name Start Date Discontinue Date Treatment Medications Discontinue Reason Plan Provider Cycles [id number] MAP, Cycles 3 thru 6 (Weeks 12 thru 29 of MAP and MAPIfn) 09/23/19 16 05/05/2016 CISplatin (PLATINOL) infusiondexAMETHasone (DECADRON) 4 MG/MLdexrazoxane (AUROMEDICS/EUGIA generic formulation) intermittent infusionDOXOrubicin (ADRIAMYCIN) infusionleucovorin intermittent infusionmethotrexate-so dium bicarbonate infusionpegfilgrastim (NEULASTA) Therapy Complete Juanpablo Briceño, 4 of 4 cycles started [id number] MAP, Cycles 3 thru 6 (Weeks 12 thru 29 of MAP and MAPIfn) 09/23/19 16 09/17/2015 CISplatin (PLATINOL) infusiondexAMETHasone (DECADRON) 4 MG/MLdexrazoxane (AUROMEDICS/EUGIA generic formulation) intermittent infusionDOXOrubicin (ADRIAMYCIN) infusionfilgrastim (NEUPOGEN)filgrastim (NEUPOGEN) intermittent infusionleucovorin intermittent infusionmethotrexate-so dium bicarbonate infusionpegfilgrastim (NEULASTA) Future Plan Deleted Juanpablo Briceño, DO Treatment not started [id number] Inductio n, Cycles 1 and 2 07/01/19 16 09/17/2015 CISplatin (PLATINOL) infusiondexAMETHasone (DECADRON) 4 MG/MLdexrazoxane (AUROMEDICS/EUGIA generic formulation) intermittent infusionDOXOrubicin (ADRIAMYCIN) infusionleucovorin intermittent infusionmethotrexate-so dium bicarbonate infusionpegfilgrastim (NEULASTA) Proceed To Next Treatment Plan Juanpablo Briceño DO 2 of 2 cycles completed Lifetime Dose Tracking * Chemical Lifetime Dose Automatic Entry Manual Entr y CISplatin (mg/m2) 471.211 mg/m2 (618 mg) 471.211 mg/m2 (618 mg) 0 mg/m2 (0 mg) DOXOrubicin (mg/m2) 443.179 mg/m2 (594.4 mg) 443.179 m g/m2 (594.4 mg) 0 mg/m2 (0 mg) Methotrexate (mg/m2) 146,011.7 mg/m2 (19 6,000 mg) 146,011.7 mg/m2 (196,000 mg) 0 mg/m2 (0 mg) Resolved Problems Problem Noted Date Diagnosed Date Resolved Date Hypothyroid 05/27/2010 01/15/2014
--- OUTSIDE RECORDS SUMMARY | 2025-05-08 15:26 | XMS_ITS | Clinical Summary ---
Author Organization [facility] Address [address] [place] [id number] Care Team Providers Care Ship Boat Or Barge Mate Name Role Phone Napoleon Courtney MD Primary Care Provider [phone] Source Comments This information has been disclosed to you from confidential records protectedfrom disclosure by state law. You shall make no further disclosure of thisinformation without the specific, written, and informed release of theindividual to whom it pertains, or as otherwise permitted by law. A generalauthorization for the release of medical or other information is not sufficientfor the purposes of therelease of HIV test results or diagnoses. [id number] Allergies Active Allergy Reactions Criticality Noted Date Comments Promethazine Other (See Comments) 12/17/2021 Extreme Agitation Sulfa (Sulfonamide Antibiotics) Hives High 12/17/2021 Medications * This document contains information received from the source organization and may not represent a complete record from that organization. QUEtiapine (SEROQUEL) 50 MG tabletIndicati ons:MOOD Take 50 mg by mouth at bedtime. Indications: MOOD Active hydrocortisone (CORTEF) 5 MG tabletIndicati ons:thyroiditi s Take 5 mg by mouth daily. 7.5 every morning 5 mg every evening Indications: thyroiditis Active levothyroxine (SYNTHROID) 112 MCG tabletIndicati ons:hypothyroi dism Take 112 mcg by mouth every morning before breakfast. Indications: hypothyroidism Active hydrOXYzine pamoate (VISTARIL) 25 MG capsuleIndicat ions:anxiety Take 1 capsule (25 mg total) by mouth 2 times a day as needed for Anxiety. Indications: anxiety 60 capsule 2 Active ARIPiprazole (ABILIFY) 2 MG tabletIndicati ons:MOOD Take 2 tablets (4 mg total) by mouth daily. Indications: MOOD 60 tablet 2 Active cholecalcifero l, vitamin D3, 1000 units tabletIndicati ons:vitamin D deficiency Take 2 tablets (2,000 Units total) by mouth daily. Indications: vitamin D deficiency 60 tablet 2 Active buPROPion (WELLBUTRIN) 75 MG tablet Take 1 tablet (75 mg total) by mouth daily. 5 Active Social History Tobacco Use Types Packs/Day Years Used Date Smoking Tobacco: Never Smokeless Tobacco: Never Alcohol Use Standard Drinks/Week Comments Yes 3 (1 standard drink = 0.6 oz pur e alcohol) Comments No Sex and Gender Information Value Date Recorded Sex Assigned at Female 12/16/2021 4:06 PM EDT Legal Sex Female 10:45 AM EDT Gender Identity Non-Binary Gender 12/16/2021 5:5 4 PM EDT Sexual Orientation Not on file Last Filed Vital Signs Vital Sign Reading Time Taken Comments Blood Pressure 90/67 12/20/2021 7:00 AM EDT Pulse 84 12/20/2021 7:00 AM EDT Temperature 36.6 C (97.8 F) 12/20/2021 7:00 AM EDT Respiratory Rate 16 12/20/2021 7:00 AM EDT Oxygen Saturation 100% 12/20/2021 7:00 AM EDT Inhaled Oxygen Concentration 100% 12/20/2021 7 :00 AM EDT Weight 49.9 kg (110 lb) 12/16/2021 4:20 PM EDT Height 154.9 cm (5' 1 ) 12/16/2021 4:20 PM EDT Body Mass Index 20.78 12/16/2021 4:20 PM EDT Plan of Treatment Not on file Insurance [facility] [employer] [facility] [facility] [employer] [facility] Care Teams Ship Boat Or Barge Mate Relationship Specialty Start Date End Date Napoleon Courtney MD [address] [place] [address] PCP - General Family Medicine 12/16/21
--- OUTSIDE RECORDS SUMMARY | 2025-05-08 15:26 | XMS_ITS | Encounter Summary ---
Author Organization [facility] Address [address] [place] [address] Care Team Providers Care Talent Coordinator Name Role Phone Napoleon Courtney MD Primary Care Provider [phone] Encounter Details Date Type Department Care Team (Late st Contact Info) Description 01/19/2016 Telephone [facility] Cancer and Blood Diseases [place] [address] [place] [phone] Loly Newton Social History Tobacco Use Types Packs/Day Years [...] Info) Description 06/23/2025 10:45 AM EST Appointment [facility] Division of Psychiatry [address] [place] [phone] Frederic Lam MD Psychiatry/Psycho [place] [address] [place] [address] [place] [address] Discharge Disposition: Home or Self [...] for illness. Reinforced to call home care aide for non emergent issues. Encouraged family to [...] on filedocumented in this encounter Care Teams Talent Coordinator Relationship Specialty Start Date End Date Napoleon Courteny MD Jason Hoke, M.D. [address] [place] [address] PCP - General 07/11/18 documented as of this encounter
--- OUTSIDE RECORDS SUMMARY | 2025-05-08 15:26 | XMS_ITS | Clinical Summary ---
Author Organization [facility] Address [address] [place] [address] Care Team Providers Care Charge Account Identification Clerk Name Role Phone Napoleon Courtney MD Primary Care Provider [phone] Source Comments [facility] is fully rolled out with thefollowing exceptions:[facility] Allergies Active Allergy Reactions Criticality Noted Date Comments Promethazine Itching Medium 07/02/2015 Started itching after infusion (despite benadryl) and became very anxious. Do not plan to give with future cycles at mother's request. Sulfa Antibiotics Hives High 07/04/2012 Medications acetaminophen (TYLENOL) 325 MG tablet Take 2 Tabs (650 mg total) by mouth every 6 hours as needed for mild pain. 60 Tab 06/07/19 17 Active Additional Information Patient not taking.Reported on 03/03/2025 cyclobenzaprine (FLEXERIL) 10 MG tablet Take 1 tablet by mouth every 8 hours as needed. 10/24/19 21 Active hydrocortisone (CORTEF) 5 MG tabletIndications :Hypopituitarism involving multiple pituitary deficiencies,ACTH deficiency TAKE 1.5 (7.5 MG) TABLETS BY MOUTH EVERY MORNING AND 1 (5 MG) TABLET EVERY EVENING. TAKE 3 TABLETS (15 MG) BY MOUTH NEEDED FOR MILD ILLNESS STRESS DOSING. 270 tablet 1 08/06/19 25 Active syringe/needle (disp) (BD ECLIPSE SYRINGE) 23G X 1 3 ML miscellaneous To administer solu-cortef injections. 4 each 2 08/06/19 25 Active hydrocortisone (SOLU-CORTEF) 100 MG injectionIndicati ons:ACTH deficiency Inject 100 mg (2 mL) intramuscularly one time for severe illness when patient unable to take oral medication, and continuously vomiting. Please call provider office once given. 6 each 08/17/19 25 Active Additional Information Patient not taking.Reported on 03/03/2025 SYNTHROID 112 MCG tabletIndications :Central hypothyroidism TAKE 1 TABLET DAILY 90 tablet 1 02/05/20 25 Active methylphenidate (RITALIN) 10 MG tabletIndications :Attention deficit hyperactivity disorder, inattentive type Take 1 tablet by mouth 1 time a day as needed for ADHD. 30 tablet 5 10:13 AM EDT 03/03/20 25 Active methylphenidate (RITALIN) 10 MG tabletIndications :Attention deficit hyperactivity disorder, inattentive type Take 1 tablet by mouth 1 time a day as needed for attention. 30 tablet 04/02/20 25 Active ARIPiprazole (ABILIFY) 5 MG tablet Take 1 tablet by mouth 1 time a day. 30 tablet 8 5 4:45 PM EST 03/03/20 25 Active LORazepam (ATIVAN) 1 MG tabletIndications :Anxiety disorder, unspecified type Take 1 tablet by mouth 2 times a day as needed for anxiety. 180 tablet 2 5 10:13 AM EDT 03/03/20 25 Active methylphenidate (CONCERTA) 36 MG extended release tabletIndications :Attention deficit hyperactivity disorder, inattentive type Take 1 tablet by mouth every morning. 30 tablet 5 5:03 PM EST 04/21/20 25 026 Active methylphenidate (CONCERTA) 36 MG extended release tabletIndications :Attention deficit hyperactivity disorder, inattentive type Take 1 tablet by mouth every morning. 30 tablet 05/21/19 26 026 Active Active Problems Patient Care Coordination No te Formatting of this note migh t be different from the original. 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 TP53 loss AURKB amplification BCL2L2 amplification [id number] amplification CCNE1 amplification ZRSR2 [id number] Hypopituitarism involving multiple pituitary def iciencies 07/31/2014 [...] lens. No peripheral vision. Nocturnal enuresis 10/06/2009 Resolved Problems Problem Noted Date Diagnosed Date Resolved Date Hypothyroid 05/27/2010 01/15/2014 Encounters Date Type Department Care Team Description 04/21/2025 2:04 PM EST - 04/21/2025 11:59 PM EST Hospital Encounter [facility] Department of Pharmacy [address] [place] [phone] Emergency, Urgent Care Discharge Disposition: Home or Self Care 04/21/2025 10:45 AM EST Office Visit [facility] Division of Psychiatry [address] [place] [phone] Frederic Lam MD Attention deficit hyperactivity disorder, inattentive type (Primary Dx) Discharge Disposition: Home or Self Care 04/21/2025 10:15 AM EST Specimen Collection [facility] Test Referral Center [address] [place] [address] Clinical Labs, [facility] Anxiety disorder, unspecified type; Hypopituitarism involving multiple pituitary deficiencies Discharge Disposition: Home or Self Care 04/21/2025 Telephone [facility] Division of Diabetes and Endocrinology [address] [place] [phone] Michlel Aguilar RN Orders to be Signed 03/03/2025 9:15 AM EDT Office Visit [facility] Division of Psychiatry [address] [place] [phone] Frederic Lam MD Anxiety disorder, unspecified type (Primary Dx); Depression, unspecified depression type; Attention deficit hyperactivity disorder, inattentive type Discharge Disposition: Home or Self Care from Last 3 Months Immunizations Immunization Administration Dates Next Due Influenza Vaccine 0.5 mL - f or patients 6 months and older 01/20/2016,06/24/2015 Family History Medical History Relation Name Comments Cancer Maternal Grandfather Cancer Maternal Grandmother Cancer Paternal Grandfather High Blood Pressure Paternal Grandfather Relation Name Status Comments Maternal Grandfather Maternal Grandmother Paternal Grandfather Alive Social History Tobacco Use Types Packs/Day Years Used Date Smoking Tobacco: Never Smokeless Tobacco: Never Tobacco Cessation:Counseling Given: Not Answered Alcohol Use Standard Drinks/Week Comments No 0 [...] AM EDT Sexual Orientation Not on file Last Filed Vital Signs Vital Sign Reading Time Taken Comments Blood Pressure 126/80 04/21/2025 10:44 AM EST Pulse 86 04/21/2025 10:44 AM EST Temperature 36.7 C (98.1 F) 04/21/2025 10:44 AM EST Respiratory Rate 20 03/08/2022 10:46 AM EDT Oxygen Saturation 1% 01/08/2025 12:55 PM EDT Inhaled Oxygen Concentration - - Weight 50.9 kg (112 lb 3.4 oz) 04/21/2025 10:44 AM EST Height 153.5 cm (5' 0.43 ) 04/21/2025 10:[address] Body Mass Index 21.6 04/21/2025 10:44 AM EST Plan of Treatment Upcoming Encounters Date Type Department Care Team (Late st Contact Info) Description 06/23/2025 10:45 AM EST Appointment [facility] Division of Psychiatry [address] [place] [phone] Frederic Lam MD Psychiatry/Psycho logy - [address] [place] [address] [place] [address] Discharge Disposition: Home or Self Care Health Maintenance Due Date Last Done Comments COVID-19 Vaccine (#1) 05/02/2002 HPV IMMUNIZATION (1 - 3-dose series) 2016 MENINGOCOCCAL B VACCINE (1 of 2 - Standard) 2017 Yearly Physical Ages 3-18+ 11/08/2019 11/07/2018 PNEUMOCOCCAL IMMUNIZATION (1 of 2 - PCV) 2020 11/28/2002, 05/16/2002, 03/11/2002, Additional history exists DTAP/Tdap/Td IMMUNIZATION (7 - Td or Tdap) 12/11/2023 12/10/2013, 09/25/2006, 03/13/2003, Additional history exists AMB SEASONAL FLU VACCINE (#1) 01/13/2025 01/20/2016, 06/24/2015 HEPATITIS B IMMUNIZATION Completed 003, 03/11/2002, 2001 HIB IMMUNIZATION Completed 11/28/2002, , 2001 IPV IMMUNIZATION Completed 09/25/2006, 06/2002, 03/11/2002, Additional history exists MMR IMMUNIZATION Completed 09/25/2006, 03/13/2003 VARICELLA IMMUNIZATION Completed 09/25/2006, 2002 MCV4 IMMUNIZATION Completed 11/07/2018 Respiratory Syncytial Virus (RSV) <20mo Aged Out No longer eligible based on patient's age to complete this topic Goals Goal Patient Goal Type Associated Problems Recent Progress Patient-Stated? Author How and when to contact the care team Access Planning No Maritza Thomas RN Note: Patient and Family will verbalize understanding of who to call for medical questions and concerns. Status: progressing Interventions: Reinforced to call triage or oncology oncall for illness. Reinforced to call healthcare manager for non emergent issues. Encouraged family [...] family to formalize a goal for DJ. Medical Devices Implanted Type Area Licensed Physical Therapist Device Identifier Shelf Expiration Date Model / Serial / Lot Segmental Femoral Component Biomet Orthopedic Salvage System (Oss) Right Pre Press Manager Size Implanted:Qty: 1 on 09/11/2015 by Salas Gómez MD at [facility] Orthopedic Right: Knee 01/07/2025 [id number] / NA / [id number] Biomet Compress Device Taper Adapter With Screw Implanted:Qty: 1 on 09/11/2015 by Salas Gómez MD at [facility] Orthopedic Right: Knee 04/20/2025 [id number] / NA / [id number] Oss (Tm) Rs 8.5 Cm Segmental Femur Right Bi[employer] Orthopedics Implanted:Qty: 1 on 09/11/2015 by Salas Gómez MD at [facility] Orthopedic Right: Knee 11/11/2020 [id number] / NA / [id number] Biomet Compress Device Nut Implanted:Qty: 1 on 09/11/2015 by Salas Gómez MD at [facility] Orthopedic Right: Knee 07/02/2025 [id number] / NA / [id number] Oss Rs 12mm Ls Tibial Bearing Bi[employer] Orthopedics Implanted:Qty: 1 on 09/11/2015 by Salas Gómez MD at [facility] Orthopedic Right: Knee 02/10/2019 [id number] / NA / [id number] Oss Locking Pin Bi[employer] Orthopedics Implanted:Qty: 1 on 09/11/2015 by Salas Gómez MD at [facility] Orthopedic Right: Knee 04/12/2018 [id number] / NA / [id number] Biomet Orhtopedic Salvage System Yoke Implanted:Qty: 1 on 09/11/2015 by Salas Gómez MD at [facility] Orthopedic Right: Knee 07/26/2025 [id number] / NA / [id number] Biomet Orthopedic Salvage System Rs Femoral Bushings Set Arcom Reducing Size Implanted:Qty: 1 on 09/11/2015 by Salas Gómez MD at [facility] Orthopedic Right: Knee 05/05/2020 [id number] / NA / [id number] Biomet Orthopedics Salvage System (Oss) Tibial Bushing Arcom Implanted:Qty: 1 on 09/11/2015 by Salas Gómez MD at [facility] Orthopedic Right: Knee 06/03/2020 [id number] / NA / [id number] Biomet Orthopedic Salvage System (Oss) Rs Axle Reducing Size Implanted:Qty: 1 on 09/11/2015 by Salas Gómez MD at [facility] Orthopedic Right: Knee 03/12/2025 [id number] / NA / [id number] Cement Bone Antibiotic Simplex - [id number] Implanted:Qty: 1 on 09/11/2015 by Salas Gómez MD at [facility] Orthopedic Right: Knee [facility] 09/11/2016 [id number] 1 / NA / [id number] Mt Baldy Plug W/ Drill Biomet Orthopedics Implanted:Qty: 1 on 09/11/2015 by Salas Gómez MD at [facility] Orthopedic Right: Knee 10/10/2024 [id number] / NA / [id number] Nexgen Complete Knee Solution Headless Trocar Drill Pin Implanted:Qty: 1 on 09/11/2015 by Salas Gómez MD at [facility] Orthopedic Right: Knee [employer] 06/14/2025 [id number] 20-00 / NA / [id number] Compress (R) /Gary (R) Transverse Pin Biomet Orthopedics Implanted:Qty: 1 on 09/11/2015 by Salas Gómez MD at [facility] Orthopedic Right: Knee 01/10/2025 [id number] / NA / [id number] Oss (Tm)Rs 55mmnon-Modular Short Tibial Base Biomet Orthopedics Implanted:Qty: 1 on 09/11/2015 by Salas Gómez MD at [facility] Orthopedic Right: Knee 05/12/2017 [id number] / NA / [id number] Compress Centering Sleeve 15mm Biomet Orthpedics Implanted:Qty: 1 on 09/11/2015 by Salas Gómez MD at [facility] Orthopedic Right: Knee 05/12/2024 [id number] / NA / [id number] Compress Ricci Anti-Rotation Spindle Biomet Orthopedics Implanted:Qty: 1 on 09/11/2015 by Salas Gómez MD at [facility] Orthopedic Right: Knee 02/11/2024 [id number] / NA / [id number] Wire K Non Trd .062in - [id number] Implanted:Qty: 2 on 06/06/2016 by Brijesh Rutledge MD at [facility] Surgical Impl/Expd/Ext d/Surg Wire Right: Arm [employer] [id number] / N/A / N/A Explanted Type Area Licensed Physical Therapist Device Identifier Shelf Expiration Date Model / Serial / Lot Port Powr Inf 9.5fr Dbl Lum - [id number] Implanted:Qt y: 1 on 06/30/2015 by Moses Goode MD-PhD at [facility] Explanted:Qt y: 1 on 07/22/2015 by Dwight Tejeda MD at [facility] Implantable Infusion ports/pump Left: Chest [employer] - BARD ACCESS SYSTEM 02/09/2017 [id number] / NA / NA Cath Mediport Dbl Lum 10fr - [id number] Implanted:Qt y: 1 on 07/22/2015 by Dwight Tejeda MD at [facility] Explanted:Qt y: 1 on 01/25/2016 by Ria Hawkins DO at [place] [address] Implantable Infusion ports/pump Left: Chest [employer] 02/11/2018 [id number] / N/A / [id number] Procedures Procedure Name Priority Date/Time Associated Diagnosis Comments T4 FREE, RAPID Routine 04/21/2025 10:20 AM EST Anxiety disorder, unspecified type ANTI-MULLERIAN HORMONE Routine 04/21/2025 10:20 AM EST Hypopituitarism involving multiple pituitary deficiencies ESTRADIOL US Routine 04/21/2025 10:20 AM EST Hypopituitarism involving multiple pituitary deficiencies FSH Routine 04/21/2025 10:20 AM EST Hypopituitarism involving multiple pituitary deficiencies LH Routine 04/21/2025 10:20 AM EST Hypopituitarism involving multiple pituitary deficiencies GLYCOSYLATED HGB (HGB A1C) Routine 04/21/2025 10:20 AM EST Anxiety disorder, unspecified type TSH WITH REFLEX TO T4 FREE, RAPID Routine 04/21/2025 10:20 AM EST Anxiety disorder, unspecified type LIPID PROFILE W/ HDL Routine 04/21/2025 10:20 AM EST Anxiety disorder, unspecified type HEPATIC PROFILE (NO GGT) Routine 04/21/2025 10:20 AM EST Anxiety disorder, unspecified type from Last 3 Months Results * Anti-Mullerian Hormone (04/21/2025 10:20 AM EST) ANTI-MULLERIAN HORMONE 5.982 0.401 - 16.015 ng/mL 04/24/2025 11:07 AM EST [facility] Comment: INTERPRETIVE INFORMATION: Anti-Mullerian Hormone FEMALE: 6 [...] developed and its performance characteristics determined by [facility]. It has not been cleared or approved by the US Food and Drug Administration. This test was performed in a CLIA certified laboratory and is intended for clinical purposes. Performed By: [address] [address] Armored Car Guard: Georgi Hannah MD, PhD CLIA Number: [id number] Blood Venipuncture / Unknown 04/21/2025 10:20 AM EST 04/21/2025 10:21 AM EST us Georgi Blum MD CHEMISTRY ORDERABLE S Final Result [address] [address] * (ABNORMAL) TSH with Reflex to T4 Free, Rapid (04/21/2025 10:20 AM EST) Tsh With Reflex To T4 Free Rapid <0.010(L) 0.360 - 3.740 mcIU/mL 04/21/2025 10:58 AM EST [facility] Blood Venipuncture / Unknown 04/21/2025 10:20 AM EST 04/21/2025 10:21 AM EST Frederic Lam MD CHEMISTRY ORDERABLES Fin al Result Performing Organization Address City/[facility] Co de Phone Number [facility] [address] [phone] * T4 Free, Rapid (04/21/2025 10:20 AM EST) Thyroxine Free 1.50 0.90 - 2.30 ng/dL 04/21/2025 11:18 AM EST [facility] Blood Venipuncture / Unknown 04/21/2025 10:20 AM EST 04/21/2025 10:21 AM EST Frederic Lam MD CHEMISTRY ORDERABLES Fin al Result Performing Organization Address [facility] Co de Phone Number [facility] [address] [place], [place] [id number] * Hepatic Profile (no GGT) (04/21/2025 10:20 [...] CHEMISTRY ORDERABLES Fin al Result [facility] [address] Count Includes [facility] Room [address] [place] [address] * Lipid Profile W/ HDL (04/21/2025 10:20 [...] mg/dL Adult <100 mg/dL 100-159 mg/dL >=160mg/dL Frederic Lam MD CHEMISTRY ORDERABLES Fin al Result [facility] [address] [address] * LH (04/21/2025 10:20 AM EST) LUTEINIZING HORMONE 7.3 mIU/mL 04/22/2025 12:36 PM EST [facility] Comment: Reference Ranges: Infants 2 weeks [...] ORDERABLE S Final Result Performing Organization Address City/[facility] Co de Phone Number [facility] [address] [place] [address] * Hemoglobin A1C (04/21/2025 10:20 AM EST) Hb A1c 5.4 <=6.3 % 04/22/2025 10: 38 AM EST [facility] Blood Venipuncture / Unknown 04/21/2025 10:20 AM EST 04/21/2025 10:21 AM EST Frederic Lam MD CHEMISTRY ORDERABLES Fin al Result Performing Organization Address City/[facility]/ZIP Co de Phone Number [facility] [address] [place] [address] * FSH (04/21/2025 10:20 AM EST) FOLLICLE [...] Blum MD CHEMISTRY ORDERABLE S Final Result [facility] [address] [place] [address] * Estradiol Us (04/21/2025 10:20 AM EST) ESTRADIOL BY TMS 15.8 pg/mL 04/25/20 4:45 AM EST [facility] Comment: REFERENCE INTERVAL: Estradiol by [employer] Pre-menopausal: Early follicular 30.0-100.0 pg/mL Pre-menopausal: Late follicular 100.0-400.0 pg/mL Pre-menopausal: Luteal 50.0-150.0 pg/mL Post-menopausal 2.0-21.0 pg/mL REFERENCE INTERVAL: Estradiol by [employer]ice For a complete set of all established reference intervals, refer to ltd.[employer]/Tests/Pub/[id number]. This test was developed and its performance characteristics determined by [facility]. It has not been cleared or approved by the [place] Food and Drug Administration. This test was performed in a CLIA certified laboratory and is intended for clinical purposes. Performed By: [facility] [address] [place] [address] Armored Car Guard: Georgi Hannah MD, PhD CLIA Number: [id number] Blood Venipuncture / Unknown 04/21/2025 10:20 AM EST 04/21/2025 10:21 AM EST Georgi Blum MD CHEMISTRY ORDERABLE S Final Result Performing Organization Address City/State/[facility] Co de Phone Number [address] [address] from Last 3 Months Insurance [employer] MISCELLANEOUS COMMERCIAL MISCELLANEOUS COMMERCIAL A[employer] * Guarantor: [facility] Account Type Relation to Patient Date of Phone Billing Address [facility] [address] [place] [address] Care Teams Charge Account Identification Clerk Relationship Specialty Start Date End Date Napoleon Courtney MD Jason Hoke, M.D. [address] [place] [address] PCP - General 07/11/18
--- OUTSIDE RECORDS SUMMARY | 2025-05-08 15:26 | XMS_ITS | Clinical Summary ---
Author Organization [facility] Address [address] [facility], [address] [place] [address] Care Team Providers Care Software Project Lead Name Role Phone Unavailable Primary Care Provider Unavailabl e Allergies Active Allergy Reactions Criticality Noted Date Comments Promethazine Itching,Other (See Comments) Medium 07/02/2015 anxiety Started itching after infusion (despite benadryl) and became very anxious. Do not plan to give with future cycles at mother's request. Extreme Agitation Sulfa Antibiotics Hives High 07/04/2012 hives Social History Tobacco Use Types Packs/Day Years Used Date Smoking Tobacco: Never Smokeless Tobacco: Never Tobacco Cessation:Counseling Given: Not Answered Alcohol Use Standard Drinks/Week Comments Not Currently 0 (1 standard drink = 0.6 oz pur e alcohol) AUDIT-C Answer Date Recorded Q1: How often do you have a drink containing alc ohol? 2-3 times a week 09/26/2024 Q2: How many drinks containi ng alcohol do you have on a typical day when you are drinking? 3 or 4 09/26/2024 Q3: How often do you have si x or more drinks on one occasion? Never 09/26/2024 Interpersonal Safety Domain Source: IP Abuse Scr eening Answer Date Recorded Physical abuse Denies 05/29/2024 Verbal abuse Denies 05/29/2024 Emotional abuse Denies 05/29/2024 Financial abuse Denies 05/29/2024 Sexual abuse Denies 05/29/2024 Comments No Sex and Gender Information Value Date Recorded Sex Assigned at Unknown 09/26/2024 4:48 PM EDT Legal Sex Female 4:44 AM EST Gender Identity Other 09/26/2024 4:48 PM EDT Sexual Orientation Choose not to disclose 2024 4:48 PM EDT Last Filed Vital Signs Vital Sign Reading Time Taken Comments Blood Pressure 98/68 09/26/2024 4:59 PM EDT Pulse 71 09/26/2024 4:59 PM EDT Temperature 36.7 C (98.1 F) 09/26/2024 3:09 PM EDT Respiratory Rate 20 09/26/2024 4:59 PM EDT Oxygen Saturation 100% 09/26/2024 4:59 PM EDT Inhaled Oxygen Concentration - - Weight 50.8 kg (112 lb) 09/26/2024 3:09 PM EDT Height 152.4 cm (5') 09/26/2024 3:09 PM EDT Body Mass Index 21.87 09/26/2024 3:09 PM EDT Plan of Treatment Health Maintenance Due Date Last Done Comments DTaP/Tdap/Td vaccine (7 - Td or Tdap) 12/11/2023 12/10/2013, 09/25/2006, 03/13/2003, Additional history exists Flu vaccine (#1) 12/13/2024 01/20/2016, 06/24/2015 COVID-19 Vaccine (2023-2 5 season) 2025 Polio vaccine Completed 09/25/2006, 06/2002, 03/11/2002, Additional history exists Insurance AET[employer]
--- OUTSIDE RECORDS SUMMARY | 2025-05-08 15:26 | XMS_ITS | Encounter Summary ---
Author Organization [facility] Address [address] [place] [address] Care Team Providers Care Vp & General Counsel Name Role Phone Napoleon Courtney MD Primary Care Provider [phone] Encounter Details Date Type Department Care Team (Late st Contact Info) Description 09/13/2017 Abstract [facility] Cancer and Blood Diseases [place] [address] [place] [phone] Yahaira Shaw MD [address] [facility] [address] [place] [address] Social History Tobacco Use Types Packs/Day Years [...] Info) Description 06/23/2025 10:45 AM EST Appointment [facility] Division of Psychiatry [address] [place] [address] Frederic Lam MD Psychiatry/Psycho [facility] [address] [place] [address] [place] [address] Discharge Disposition: Home or Self Care documented as of this encounter Goals Goal Patient Goal Type Associated Problems Recent Progress Patient-Stated? Author How and when to contact the care team Access Planning No Maritza Thomas, IRMA Note: Patient and Family will verbalize understanding of who to call for medical questions and concerns. Status: progressing Interventions: Reinforced to call triage or oncology oncall for illness. Reinforced to call occasional caregiver for non emergent issues. Encouraged family [...] on filedocumented in this encounter Care Teams Vp & General Counsel Relationship Specialty Start Date End Date Napoleon Courtney MD Jason Hoke, M.D. [address] [place] [address] PCP - General 07/11/18 documented as of this encounter
--- OUTSIDE RECORDS SUMMARY | 2025-05-08 15:26 | XMS_ITS | Encounter Summary ---
Author Organization [facility] Address [address] [place] [address] Care Team Providers Care Surgical Sales Representative Name Role Phone Napoleon Courtney MD Primary Care Provider [phone] Reason for Visit * Reason Onset Date Comments Schedule Appointment 01/04/2016 Encounter Details Date Type Department Care Team (Late st Contact Info) Description 01/04/2016 Telephone [id number] [address] [place] [phone] Britney Stern, RN Schedule Appointment Social History Tobacco Use Types Packs/Day Years [...] encounter Miscellaneous Notes * Telephone Encounter - Britney Stern, IRMA - 01/04/2016 8:33 AM EDT I spoke with mom at [phone]. She is calling because Adrianna is supposed to have an appointment with pain team this afternoon and mom hasn't received a call regarding appointment time. Mom says she spokewith Dr. Lantigua and pain team staff on Monday at [place]. Appointment is scheduled at 1330 in Nephrology clinic. I gave mom this information and made sure she is aware that this appointment is at [facility]. Mom verbalized understanding. Mom says that Adrianna is supposed to have a picc line cap and dressing change by home care at 1230 today. Adrianna gets off school at 1200. Mom says they will not be able to get dressing change at that time. I spoke with Kasia Oseguera RN, Clinical Medical Massage Therapist and she states we are not able to do dressing change in our clinic unless pain team, VAT team or home care cannot do it. She suggests calling home care to see if they can come out later today to do the capand dressing change. I notified Keysha Thomas RN, Oncology CM for Adrianna. At 0826 I spoke with Megan SOLIS, CM with home care. She states that mom called and told her spoke with me and dressing change willbe done in our clinic because VAT team is unable to change dressing. I explained the situation to Megan. Megan says that mom said they are not available for home care this afternoon after pain team appointment. Megan says she can not send a nurse this evening to do dressing change. I informed Megan that dressing change will be done by someone today here at the hospital. I spoke with Keysha and she will follow up with arrangements to get dressing and cap change done today. documented in this encounter Plan of Treatment Upcoming Encounters Date Type Department Care Team (Late st Contact Info) Description 06/23/2025 10:45 AM EST Appointment [facility] Division of Psychiatry [address] [place] [phone] Frederic Lam MD Psychiatry/Psych[facility] - [address] [place] [address] [place] [id number] Discharge Disposition: Home or Self Care documented [...] oncall for illness. Reinforced to call pediatric care coordinator for non emergent issues. Encouraged [...] on filedocumented in this encounter Care Teams Surgical Sales Representative Relationship Specialty Start Date End Date Napoleon Courtney MD Jason Hoke, M.D. [address] [place] [address] PCP - General 07/11/18 documented as of this encounter
--- OUTSIDE RECORDS SUMMARY | 2025-05-08 15:26 | XMS_ITS | Encounter Summary ---
Author Organization [facility] Address [facility] [place] [address] Care Team Providers Care Office Messenger Helper Name Role Phone Napoleon Courtney MD Primary Care Provider [phone] Reason for Visit * Reason Onset Date Comments Orders to be Signed 04/21/2025 Encounter Details Date Type Department Care Team (Late st Contact Info) Description 04/21/2025 Telephone [facility] Division of Diabetes and Endocrinology [address] [place] [phone] Michell Aguilar, IRMA Orders to be Signed Social History Tobacco Use Types Packs/Day Years [...] encounter Miscellaneous Notes * Telephone Encounter - Michell Aguilar RN - 04/21/2025 10:08 AM EST Orders to be signed. Thanks! documented in this encounter Plan of Treatment Upcoming Encounters Date Type Department Care Team (Late st Contact Info) Description 06/23/2025 10:45 AM EST Appointment [facility] Division of Psychiatry [address] [place] [phone] Frederic Lam MD Psychiatry/Psycho logy - [address] [place] [address] [place] [address] Discharge Disposition: Home or Self Care documented [...] oncall for illness. Reinforced to call healthcare administrator for non emergent issues. Encouraged family to [...] for DJ. documented as of this encounter Results * Anti-Mullerian Hormone (04/21/2025 10:20 AM EST) ANTI-MULLERIAN HORMONE 5.982 0.401 - 16.015 ng/mL 04/24/2025 11:07 AM EST [facility] Comment: INTERPRETIVE INFORMATION: Anti-Mullerian Hormone [...] developed and its performance characteristics determined by [facility]. It has not been cleared or approved by the [place] Food and Drug Administration. This test was performed in a CLIA certified laboratory and is intended for clinical purposes. Performed By: [facility] [address] [place] [id number] Resident In Diagnostic Radiology: Georgi Hannah MD, PhD CLIA Number: [id number] Blood Venipuncture / Unknown 04/21/2025 10:20 AM EST 04/21/2025 10:21 AM EST Georgi Blum MD CHEMISTRY ORDERABLE S Final Result Performing Organization Address [facility]/[place] [address] * Estradiol Us (04/21/2025 10:20 AM EST) ESTRADIOL BY TMS 15.8 pg/mL 04/25/20 4:45 AM EST [facility] Comment: REFERENCE INTERVAL: Estradiol by Food Counter Worker Pre-menopausal: Early follicular 30.0-100.0 pg/mL Pre-menopausal: Late follicular 100.0-400.0 pg/mL Pre-menopausal: Luteal 50.0-150.0 pg/mL Post-menopausal 2.0-21.0 pg/mL REFERENCE INTERVAL: Estradiol by Food Counter Worker For a complete set of all established reference intervals, refer to [employer]/Tests/Pub/[id number]. This test was developed and its performance characteristics determined by [facility]. It has not been cleared or approved by the [place] Food and Drug Administration. This test was performed in a CLIA certified laboratory and is intended for clinical purposes. Performed By: [facility] [address] [place] [address] Resident In Diagnostic Radiology: Georgi Hannah MD, PhD CLIA Number: [id number] Blood Venipuncture / Unknown 04/21/2025 10:20 AM EST 04/21/2025 10:21 AM EST Georgi Blum MD CHEMISTRY ORDERABLE S Final Result Performing Organization Address [facility]/[place] [address] * FSH (04/21/2025 10:20 AM EST) FOLLICLE [...] Blum MD CHEMISTRY ORDERABLE S Final Result [facility] [address] [place] [address] * LH (04/21/2025 10:20 AM EST) LUTEINIZING [...] ORDERABLE S Final Result Performing Organization Address City/State/[facility] Co de Phone Number [facility] [address] [place] [address] documented in this encounter 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 [address] [place] [address] PCP - General 07/11/18 documented as of this encounter
[2025-05-08 15:28] LABS: Bacteria,Urine 4+ /lpf; Squamous Epithelial Cell,Urine 50-100 #/hpf (0-5); WBC,Urine 50-100 #/hpf (0-3)
--- NOTE | 2025-05-08 15:29 | ED_ITS ---
Discharge Plan Disposition Patient Disposition: Home, Self-Care Condition: Good Referrals Follow up/Referrals: Provider,Referral, [Primary Care Provider, Medical] - See instructions Activity Restrictions/Add. Instructions Additional Instructions/Restrictions: You were seen in the emergency room today with complaints of right upper quadrant pain. It was found that you have cholelithiasis without evidence of cholecystitis. I would keep your scheduled appointment with your surgeon for May 21 at home in [place]. You also were found to have mild hypokalemia, you were given a dose of potassium just before leaving. Return to the emergency room should you have worsening of your abdominal pain, intractable nausea, vomiting, fever, or anything else you need to be evaluated for. Clinical Impressions Clinical Impression: Cholelithiases, Acute hypokalemia Instructions Patient Instructions: DI for Acute Abdominal Pain Print Language Print Language: [place] Discharge ED Provider: Bandar Rouse Adult HPI <Meche Burrell APRN - Last Filed: 05/08/25 16:10> General Chief complaint: Abdominal Pain Stated complaint: Pain in Right Upper Quadrant Time Seen by Provider: 05/08/25 14:48 Mode of Arrival: Ambulatory Source of Information: Patient Description of Symptoms (Recalled from ER Triage Doc. by RN): Patient complaining of abdominal pain that she states is causing her to not be able to eat, states she was told about a week ago that she had a bad gallbladder after having an abdominal ultrasound in [place]. She states she was not given any medication to take. History of Present Illness HPI narrative: Adrianna Waite is a 24-year-old female who presents emergency room today with complaints of right upper quadrant pain. Ms. Stephens states that her pain started about a week ago. Actually had an ultrasound done in [place], was told that she should have her gallbladder taken out. She did not know whether they saw stones at that time, has no definitive plan to have surgery. Reports her abdomen has been hurting off and on for the last week. Acutely worsened yesterday and today. Pain is rated as a 6/10. Endorses nausea, no vomiting. No diarrhea, no fever noted. Pain radiates down to the right lower quadrant pain and across to her epigastric region. Has not eaten anything today. No prior abdominal surgeries, still has her appendix. Does not take blood thinners. No other complaints at this time. Please note that the above description of symptoms, and this electronic medical record under categorization of recalled from ER triage doctor by RN are reflective of an initial nursing assessment, however, is not reflective of my full history and physical exam that was personally taken and clarified. Consequentially, this proceeding description of symptoms, which may include the patient's cauterized chief complaint in the EMR, do not reflect my personal clinical impression, and the ultimate description of the history of present illness stated complaints should be deferred to this section of this note. Unless stated otherwise were congruent with the section of the note, additional signs, symptoms, or incongruence can be interpreted as in or accurate with my clinical impression. Related Data Allergies Allergy/AdvReac Type Severity Reaction Status Date / Time promethazine (From Phenergan) Allergy Rash Verified 05/08/25 15:01 Sulfa (Sulfonamide Allergy Hives Verified 05/08/25 15:01 Antibiotics) [facility] <Meche Burrell APRN - Last Filed: 05/08/25 16:10> [facility] Disclaimer: The information contained in this section may have been updated after the patient was seen, as this information can be updated by other users. Social History (Updated 05/08/25 @ 16:10 by Meche Burrell APRN) Smoking Status: Never smoker alcohol intake: current current occupational status: other Travel in the last 8 weeks?: Inside the [place] Have you lived/traveled outside US in past 30 days?: No Contact w/someone who lives/traveled outside US past 30 days?: No Exposure to someone with infectious disease in past 14 days?: No Do you have a fever (greater than 100.4 F or 38 C)?: No Have you tested positive for COVID-19?: No Exposed to someone with COVID-19 in past 14 days?: No Do you have a sore throat?: No Do you have a cough?: No Do you have any weakness?: No Do you have any diarrhea?: No Are you experiencing any unusual bleeding?: No Do you have any muscle aches/pain?: No Do you have any abdominal pain?: No Are you experiencing loss of taste or smell?: No <Meche Burrell APRN - Last Filed: 05/08/25 16:10> ROS Obtained: Yes All systems reviewed & no additional complaints except as documented Physical Exam <Meche Yund, TECHNICAL ADMINISTRATIVE ASSISTANT - Last Filed: 05/08/25 16:10> General General appearance: alert and in no apparent distress Head Head exam: atraumatic, normocephalic and normal inspection Eye Eye exam: Present normal appearance, PERRL and EOMI ENT ENT exam: Present normal exam, normal oropharynx, mucous membranes moist, TM's normal bilaterally and normal external ear exam Neck Neck exam: Present normal inspection, full ROM and trachea midline; Absent meningismus or lymphadenopathy Chest Chest inspection: Present normal inspection and symmetric chest wall rise; Absent tenderness Respiratory Respiratory exam: Present normal lung sounds bilaterally; Absent respiratory distress Cardiovascular Cardiovascular exam: Present regular rate and normal rhythm; Absent JVD Abdominal Exam Abdominal exam: Present soft, rebound, normal bowel sounds and tenderness at McBurney's Point; Absent guarding or rigidity Abdominal tenderness: Present RUQ Extremities Exam Extremities exam: Present normal inspection, full ROM and normal capillary refill; Absent calf tenderness Back Exam Back exam: Present normal inspection; Absent tenderness Neurological Exam Neurological exam: Present alert and oriented X3 Psychiatric Psychiatric exam: Present normal affect and normal mood Skin Skin exam: Present warm, dry, intact and normal color Lymphatic Lymphatic Findings: no adenopathy <Bandar Rouse DO - Last Filed: 05/11/25 19:37> Abdominal Exam Abdominal exam: Absent rebound Medical Decision Making <Meche Burrell, TECHNICAL ADMINISTRATIVE ASSISTANT - Last Filed: 05/08/25 16:10> Medical Records Screening: Per USPSTF and CDC recommendations, given the prevalence of disease in our region, it is our hospital?s policy to screen for HIV and viral Hepatitis for all patients aged 18 and over and those with ongoing risk factors. Rhett Inquiry Pt receiving controlled substance: No Vital Signs: 05/08/25 14:56 05/08/25 15:00 05/08/25 15:15 Temperature 98.3 F Temperature Source Oral Pulse Rate 75 71 Pulse Rate [Right Brachial] 75 Respiratory Rate 16 16 Blood Pressure 115/82 120/85 Blood Pressure [Right Arm] 132/94 H Blood Pressure Mean 95 Blood Pressure Mean [Right Arm] 106 Blood Pressure Source Blood Pressure Source [Right Arm] Automatic Cuff Blood Pressure Position Blood Pressure Position [Right Arm] Sitting 02 Sat by Pulse Oximetry 100 100 100 Oxygen Delivery Method Room Air 05/08/25 15:30 05/08/25 15:45 05/08/25 16:00 Temperature Temperature Source Pulse Rate 68 66 57 L Pulse Rate [Right Brachial] Respiratory Rate 15 18 16 Blood Pressure 110/73 108/74 L 112/77 Blood Pressure [Right Arm] Blood Pressure Mean 85 82 84 Blood Pressure Mean [Right Arm] Blood Pressure Source Blood Pressure Source [Right Arm] Blood Pressure Position Blood Pressure Position [Right Arm] 02 Sat by Pulse Oximetry 100 100 100 Oxygen Delivery Method 05/08/25 16:15 05/08/25 16:19 Temperature 98.1 F Temperature Source Oral Pulse Rate 65 62 Pulse Rate [Right Brachial] Respiratory Rate 18 18 Blood Pressure 116/64 116/64 Blood Pressure [Right Arm] Blood Pressure Mean 81 Blood Pressure Mean [Right Arm] Blood Pressure Source Automatic Cuff Blood Pressure Source [Right Arm] Blood Pressure Position Supine Blood Pressure Position [Right Arm] 02 Sat by Pulse Oximetry 100 Oxygen Delivery Method Room Air Lab Data Lab Results 05/08/25 14:55: Urine Color Yellow, Urine Appearance Clear, Urine pH 7.0, Ur Specific [place] 1.020, Urine Protein Negative, Urine Glucose (UA) Negative, Urine Ketones Negative, Urine Blood Negative, Urine Nitrate Negative, Urine Bilirubin Negative, Urine Urobilinogen 1.0, Ur Leukocyte Esterase 1+ A, Urine RBC 5-10, Urine WBC 50-100, Ur Squamous Epith Cells 50-100, Urine Bacteria 4+, Urine HCG, Qual Negative 05/08/25 15:25: WBC 8.5, RBC 4.11 L, Hgb 12.1 L, Hct 35.3 L, MCV 85.9, MCH 29.4, MCHC 34.3, RDW 12.7, Plt Count 236, MPV 9.4, Neut % (Auto) 46.7, Lymph % (Auto) 47.5, [place] % (Auto) 4.1, Eos % (Auto) 1.3, Baso % (Auto) 0.2, Neut # (Auto) 4.0, Lymph # (Auto) 4.0, [place] # (Auto) 0.4, Eos # (Auto) 0.1, Baso # (Auto) 0.0, Sodium 136, Potassium 3.3 L, Chloride 100, Carbon Dioxide 27, Anion Gap 12.3, BUN 16, Creatinine 0.70, Estimated Creat Clear 94, Estimated GFR 104, Est GFR ( Amer) 125, Glucose 104 H, Calcium 9.2, Total Bilirubin 0.5, AST 46 H, ALT 33, Alkaline Phosphatase 66, Total Protein 7.0, Albumin 4.4, Globulin 2.6, Albumin/Globulin Ratio 1.7, Lipase 100 05/08/25 15:25 05/08/25 15:25 Orders (Tests/Meds): ED MEDICATIONS Discontinued Medications Generic Name Dose Route Start Last Admin Trade Name Freq PRN Reason Stop Dose Admin Morphine Sulfate 2 mg 05/08/25 15:34 05/08/25 16:03 Morphine 2mg/Ml Syringe IV 05/08/25 15:35 Not Given ONCE ONE Ondansetron HCl 4 mg 05/08/25 15:34 05/08/25 16:16 Ondansetron 4mg/2ml Vial IV 05/08/25 15:35 4 mg ONCE ONE Administration Potassium Chloride 40 meq 05/08/25 16:11 05/08/25 16:16 Potassium Chloride 20meq Tab PO 05/08/25 16:12 40 meq ONCE ONE Administration ORDERS Category Date Time Status POCUS Point of Care (ER Only) Stat Exams 05/08/25 14:58 Completed CBC w/Auto Diff [Complete Blood Count Auto Diff] Stat Lab 05/08/25 15:25 Completed CMP [Comprehensive Metabolic Panel] Stat Lab 05/08/25 15:25 Completed Lipase Stat Lab 05/08/25 15:25 Completed UA/RFX Microscopic Stat Lab 05/08/25 14:55 Completed Urine Microscopic Stat Lab 05/08/25 14:55 Completed Urine , HCG Qual. Stat Lab 05/08/25 14:55 Completed Urine Culture Stat Micro 05/08/25 14:55 Completed Medical Decision Narrative: In summary patient is an 24-year-old female who presents emergency department for evaluation of right upper quadrant pain. Pain has been ongoing for about a week, acutely worsened yesterday and today. Currently rated a 7/10. No vomiting, does endorse some nausea. Radiates to her right lower quadrant. No prior abdominal surgeries. Does not take blood thinners. Patient is hemodynamically stable, sinus rhythm on the monitor, heart rate in the 70s. Normotensive blood pressure. Upon arrival, afebrile. Physical exam remarkable for positive McBurney's sign, normal active bowel sounds, no guarding, no peritoneal signs.. Differential diagnosis includes acute cholecystitis, gastric ulcer, appendicitis. Initial workup will be conducted with hematologic labs, [id number] ultrasound. Initial interventions include antiemetics and pain medication for pain control. initial workup reviewed by me hematologic labs remarkable for mild hypokalemia. No leukocytosis noted. AST at 46. UA shows significant contamination with 100 squamous epithelial cells, also showed 4+ bacteria and 1+ leukocytes which could be just contributed to the contaminant due to patient not cleaning adequately before getting a urine sample. Patient having absolutely no dysuria or hematuria. [id number] ultrasound done by ER physician did not show any evidence of fluid around the gallbladder, did show a 2 cm stone, bile duct was not dilated. Upon repeat evaluation resolution of abdominal pain and nausea. Patient has no nausea at this time, abdominal pain well-controlled at 2/10. CT abdomen pelvis was considered but not done as [id number] ultrasound done by ER physician did not show any evidence of CBD, no evidence of fluid around gallbladder. given this patient appropriate for discharge at this time. Did discuss at length with the patient that she does not have any evidence of cholecystitis, no leukocytosis, no fever. Patient would prefer to follow-up and keep her scheduled preop appointment on May 21 with her surgeon in [place]. Patient is not from this area, lives in [place]. Which is down visiting family for the holidays. She would prefer not to be admitted to this facility at this time and undergo surgery by a surgeon who is not known to her if that was even deemed necessary as patient does not have evidence of acute cholecystitis. I think it is reasonable with her pain that is well-controlled and absence of nausea that she can be discharged home and follow-up with her surgeon on May 21 as scheduled. Patient not have any symptoms of dysuria or hematuria. I do believe that the urine specimen that was given is mostly contaminated from an adequate cleaning for the clean-catch urine. I explained the patient should she begin to have dysuria, she should be reevaluated. She was given potassium replacement in the ER. She was given return precautions to the ER. <Bandar Rouse, DO - Last Filed: 05/11/25 19:37> Vital Signs: 05/08/25 14:56 05/08/25 15:00 05/08/25 15:15 Temperature 98.3 F Temperature Source Oral Pulse Rate 75 71 Pulse Rate [Right Brachial] 75 Respiratory Rate 16 16 Blood Pressure 115/82 120/85 Blood Pressure [Right Arm] 132/94 H Blood Pressure Mean 95 Blood Pressure Mean [Right Arm] 106 Blood Pressure Source Blood Pressure Source [Right Arm] Automatic Cuff Blood Pressure Position Blood Pressure Position [Right Arm] Sitting 02 Sat by Pulse Oximetry 100 100 100 Oxygen Delivery Method Room Air 05/08/25 15:30 05/08/25 15:45 05/08/25 16:00 Temperature Temperature Source Pulse Rate 68 66 57 L Pulse Rate [Right Brachial] Respiratory Rate 15 18 16 Blood Pressure 110/73 108/74 L 112/77 Blood Pressure [Right Arm] Blood Pressure Mean 85 82 84 Blood Pressure Mean [Right Arm] Blood Pressure Source Blood Pressure Source [Right Arm] Blood Pressure Position Blood Pressure Position [Right Arm] 02 Sat by Pulse Oximetry 100 100 100 Oxygen Delivery Method 05/08/25 16:15 05/08/25 16:19 Temperature 98.1 F Temperature Source Oral Pulse Rate 65 62 Pulse Rate [Right Brachial] Respiratory Rate 18 18 Blood Pressure 116/64 116/64 Blood Pressure [Right Arm] Blood Pressure Mean 81 Blood Pressure Mean [Right Arm] Blood Pressure Source Automatic Cuff Blood Pressure Source [Right Arm] Blood Pressure Position Supine Blood Pressure Position [Right Arm] 02 Sat by Pulse Oximetry 100 Oxygen Delivery Method Room Air Lab Data Lab Results 05/08/25 14:55: Urine Color Yellow, Urine Appearance Clear, Urine pH 7.0, Ur Specific [place] 1.020, Urine Protein Negative, Urine Glucose (UA) Negative, Urine Ketones Negative, Urine Blood Negative, Urine Nitrate Negative, Urine Bilirubin Negative, Urine Urobilinogen 1.0, Ur Leukocyte Esterase 1+ A, Urine RBC 5-10, Urine WBC 50-100, Ur Squamous Epith Cells 50-100, Urine Bacteria 4+, Urine HCG, Qual Negative 05/08/25 15:25: WBC 8.5, RBC 4.11 L, Hgb 12.1 L, Hct 35.3 L, MCV 85.9, MCH 29.4, MCHC 34.3, RDW 12.7, Plt Count 236, MPV 9.4, Neut % (Auto) 46.7, Lymph % (Auto) 47.5, [place] % (Auto) 4.1, Eos % (Auto) 1.3, Baso % (Auto) 0.2, Neut # (Auto) 4.0, Lymph # (Auto) 4.0, [place] # (Auto) 0.4, Eos # (Auto) 0.1, Baso # (Auto) 0.0, Sodium 136, Potassium 3.3 L, Chloride 100, Carbon Dioxide 27, Anion Gap 12.3, BUN 16, Creatinine 0.70, Estimated Creat Clear 94, Estimated GFR 104, Est GFR ( Amer) 125, Glucose 104 H, Calcium 9.2, Total Bilirubin 0.5, AST 46 H, ALT 33, Alkaline Phosphatase 66, Total Protein 7.0, Albumin 4.4, Globulin 2.6, Albumin/Globulin Ratio 1.7, Lipase 100 Orders (Tests/Meds): ED MEDICATIONS Discontinued Medications Generic Name Dose Route Start Last Admin Trade Name Freq PRN Reason Stop Dose Admin Morphine Sulfate 2 mg 05/08/25 15:34 05/08/25 16:03 Morphine 2mg/Ml Syringe IV 05/08/25 15:35 Not Given ONCE ONE Ondansetron HCl 4 mg 05/08/25 15:34 05/08/25 16:16 Ondansetron 4mg/2ml Vial IV 05/08/25 15:35 4 mg ONCE ONE Administration Potassium Chloride 40 meq 05/08/25 16:11 05/08/25 16:16 Potassium Chloride 20meq Tab PO 05/08/25 16:12 40 meq ONCE ONE Administration ORDERS Category Date Time Status POCUS Point of Care (ER Only) Stat Exams 05/08/25 14:58 Completed CBC w/Auto Diff [Complete Blood Count Auto Diff] Stat Lab 05/08/25 15:25 Completed CMP [Comprehensive Metabolic Panel] Stat Lab 05/08/25 15:25 Completed Lipase Stat Lab 05/08/25 15:25 Completed UA/RFX Microscopic Stat Lab 05/08/25 14:55 Completed Urine Microscopic Stat Lab 05/08/25 14:55 Completed Urine , HCG Qual. Stat Lab 05/08/25 14:55 Completed Urine Culture Stat Micro 05/08/25 14:55 Completed Medical Decision Narrative: In summary patient is an 24-year-old female who presents emergency department for evaluation of right upper quadrant pain. Pain has been ongoing for about a week, acutely worsened yesterday and today. Currently rated a 7/10. No vomiting, does endorse some nausea. Radiates to her right lower quadrant. No prior abdominal surgeries. Does not take blood thinners. Patient is hemodynamically stable, sinus rhythm on the monitor, heart rate in the 70s. Normotensive blood pressure. Upon arrival, afebrile. Physical exam remarkable for positive tenderness in RUQ, normal active bowel sounds, no guarding, no peritoneal signs.. Differential diagnosis includes acute cholecystitis, gastric ulcer, appendicitis. Initial workup will be conducted with hematologic labs, [id number] ultrasound. Initial interventions include antiemetics and pain medication for pain control. initial workup reviewed by me hematologic labs remarkable for mild hypokalemia. No leukocytosis noted. AST at 46. UA shows significant contamination with 100 squamous epithelial cells, also showed 4+ bacteria and 1+ leukocytes which could be just contributed to the contaminant due to patient not cleaning adequately before getting a urine sample. Patient having absolutely no dysuria or hematuria. [id number] ultrasound done by ER physician did not show any evidence of fluid around the gallbladder, did show a 2 cm stone, bile duct was not dilated. Upon repeat evaluation resolution of abdominal pain and nausea. Patient has no nausea at this time, abdominal pain well-controlled at 2/10. CT abdomen pelvis was considered but not done as [id number] ultrasound done by ER physician did not show any evidence of CBD dilation, no evidence of fluid around gallbladder. given this patient appropriate for discharge at this time. Did discuss at length with the patient that she does not have any evidence of cholecystitis, no leukocytosis, no fever. Patient would prefer to follow-up and keep her scheduled preop appointment on May 21 with her surgeon in [place]. Patient is not from this area, lives in [place]. She is just down visiting family for the holidays. She would prefer not to be admitted to this facility at this time and undergo surgery by a surgeon who is not known to her if that was even deemed necessary as patient does not have evidence of acute cholecystitis. I think it is reasonable with her pain that is well-controlled and absence of nausea that she can be discharged home and follow-up with her surgeon on May 21 as scheduled. Patient not have any symptoms of dysuria or hematuria. I do believe that the urine specimen that was given is mostly contaminated from an adequate cleaning for the clean-catch urine. I explained the patient should she begin to have dysuria, she should be reevaluated. She was given potassium replacement in the ER. She was given return precautions to the ER. I was consulted by the S[facility], and we discussed the complexity of problems being addressed. I approved the treatment and management plan for this patient's care in the emergency department, thus performing a substantive portion of the medical decision making. This is Dr. Rouse. I independently evaluated this patient and obtained collateral history. She is visiting family for the hollidays from [place]. She was recently diagnosed with gallstones, states she is having worsening post-prandial pain. Today, she was preparing to eat when the pain began in her RUQ. Pain today is more severe than it has been recently. On examination she appears non-toxic, normal vitals. She has RUQ tenderness with no peritoneal signs. Labs were interpreted by me and show no evidence of leukocytosis, no abnormality of AST/ALT/ALP or bilirubin. I did perform a bedside ultrasound that showed a 2 cm stone, no evidence of choledocholithiasis. or cholecystitis Given these findings and the fact that the patient's pain is controlled I feel that her presentation is more consistent with symptomatic cholelithiasis as opposed to choledocho or cholecystitis. She has an appointment with a surgeon back home in [place] who she will see the first week of May. All questions were answered and all parties were agreeable with the decision to discharge home. Bandar Rouse, Procedure note: Indication: Abdominal pain Identified structures: Gallbladder, gallbladder wall, bile duct Findings: Sonographic Maradiaga sign: Absent Gallstones: Present, 2 cm isolated stone Sludge: Absent Pericholecystic fluid: Absent Maximal gallbladder wall thickness (mm): < 3 mm, normal Common bile duct with (mm): <6 mm, normal Impression: Cholelithiasis without evidence of cholecystitis or choledocholithiasis Images were saved to permanent archive This study was technically adequate CPT: 52809-31 This study was performed by me and I personally interpreted all images/videos. Based on my clinical judgment these images were adequate and did not necessitate further imaging. Critical Care <Meche Burrell APRN - Last Filed: 05/08/25 16:10> Critical Care Time Critical Care Time: No
[2025-05-08 15:40] LABS: Hematocrit 35.3 % (37.0-47.0); Hemoglobin 12.1 g/dL (12.2-16.2); Immature Granulocytes % 0.2 %; Mean Corpuscular HGB Conc 34.3 g/dL (31.8-35.4); Mean Corpuscular Hemoglobin 29.4 pg (27.0-31.2); Mean Corpuscular Volume 85.9 fl (81-99); Nucleated Red Blood Cells % 0 %; Platelet Count 236 K/mm3 (142-424); Red Blood Count 4.11 M/mm3 (4.20-5.40); Red Cell Distribution Width-SD 39.9 fL; White Blood Count 8.5 K/mm3 (4.8-10.8)
[2025-05-08 15:49] LABS: Alanine Aminotransferase 33 U/L (12-78); Albumin Level 4.4 g/dl (3.5-5.0); Albumin/Globulin Ratio 1.7 (1.1-1.8); Alkaline Phosphatase 66 U/L (38-126); Anion Gap 12.3 mEq/L (5-15); Aspartate Amino Transferase 46 U/L (14-36); Bilirubin,Total 0.5 mg/dl (0.2-1.3); Blood Urea Nitrogen 16 mg/dl (7-17); Calcium 9.2 mg/dl (8.4-10.2); Carbon Dioxide 27 mmol/L (22.0-30.0); Chloride 100 mmol/L (98-107); Creatinine Clearance Estimated 94 mL/min (50-200); Creatinine,Serum 0.70 mg/dl (0.52-1.04); Estimated Glomerular Filt Rate 104 ml/min (>60); GFR (African American) 125 ML/MIN (>60); Globulin 2.6 g/dL (1.3-3.2); Glucose 104 mg/dl (74-100); Lipase 100 U/L (23-300); Potassium 3.3 mmoL/L (3.5-5.1); Sodium 136 mmol/L (136-145); Total Protein,Serum 7.0 g/dl (6.3-8.2)
[2025-05-08] MEDS: ONDANSETRON 4MG/2ML VIAL 4 MG IV (16:16)
[2025-05-08] MEDS: POTASSIUM CHLORIDE 20MEQ TAB 40 MEQ PO (16:16)
== END 2025-05-08 16:22 | disposition home or self-care (01) ==
PROVIDERS: Nurse Practitioner Acute Care; Emergency Provider Student in an Organized Health Care Education/Training Program
DX: R10.11 Right upper quadrant pain (principal); K80.20 Calculus of gallbladder without cholecystitis without obstruction; E87.6 Hypokalemia; R11.0 Nausea
CPT/HCPCS: 80053; 81003; 81015; 81025; 83690; 85025; 87086; 96374; 99284; 99285; J2405